=== PATIENT | female | born 1950 | race Caucasian/White ===

== ENCOUNTER 2016-12-27 13:08 | Emergency (ER) | payer MEDICARE, BC ==
[~2016-12-27] VITALS: Ht 152.4 cm; Wt 72.6 kg
[2016-12-27] MEDS ORDERED: HYDR-548 PO (13:29)
[2016-12-27] MEDS ORDERED: MELO-107 PO (13:29)
[2016-12-27] MEDS ORDERED: CITA10TA9 PO (13:29)
[2016-12-27] MEDS ORDERED: ASPI81TA31 PO (13:29)
[2016-12-27] MEDS ORDERED: LEVO100T10 PO (13:29)
[2016-12-27] MEDS ORDERED: ROPI1TAB2 PO (13:29)
[2016-12-27] MEDS ORDERED: LISI10TA5 PO (13:29)
[2016-12-27] MEDS ORDERED: TRAZ-144 PO (13:29)
[2016-12-27] MEDS ORDERED: MONT10TA22 PO (13:29)
[2016-12-27] MEDS ORDERED: GABA-532 PO (13:29)
[2016-12-27] MEDS ORDERED: MORPHINE SULFATE 2 MG/1 ML DISP.SYRIN IV ONE (14:00)
[2016-12-27] MEDS ORDERED: ONDANSETRON 4 MG/2 ML VIAL IV ONE (14:00)
[2016-12-27 14:15] LABS: BASOPHILS # (AUTO) 0.1 K/uL (0.0-8.0); BASOPHILS % (AUTO) 1.3 % (0.0-2.0); EOSINOPHILS # (AUTO) 0.1 K/uL (0.0-0.7); EOSINOPHILS % (AUTO) 0.6 % (0.0-7.0); HEMATOCRIT 36.3 % (37-47); HEMOGLOBIN 11.8 G/DL (12.0-16.0); LYMPHOCYTES # (AUTO) 1.5 K/UL (0.8-4.8); LYMPHOCYTES % (AUTO) 13.7 % (20.5-51.5); MEAN CORPUSCULAR HEMOGLOBIN 28.3 UUG (27.0-31.0); MEAN CORPUSCULAR HGB CONC 33 g/dL (32.0-37.0); MEAN CORPUSCULAR VOLUME 87.1 FL (81.0-99.0); MONOCYTES # (AUTO) 0.5 K/UL (0.1-1.30); MONOCYTES % (AUTO) 4.3 % (0.0-11.0); NEUTROPHILS # (AUTO) 8.6 K/UL (1.8-8.9); NEUTROPHILS % (AUTO) 80.1 % (38.5-71.5); PLATELET COUNT (AUTO) 464 K/UL (150-450); RED BLOOD CELL COUNT(AUTO) 4.17 MIL/UL (4.2-5.4); WHITE BLOOD COUNT (AUTO) 10.8 K/UL (4.0-11.2)
[2016-12-27] MEDS ORDERED: ONDANSETRON 4 MG/2 ML VIAL ONE (14:18)
[2016-12-27] MEDS ORDERED: MORPHINE SULFATE 4 MG/1 ML DISP.SYRIN ONE (14:18)
[2016-12-27 14:19] LABS: CREATININE 1.3 mg/dL (0.6-1.3); POTASSIUM 4.4 mmol/L (3.5-5.1)
[2016-12-27 14:31] LABS: BILIRUBIN,DIRECT 0.1 mg/dL (0.0-0.2); BILIRUBIN,TOTAL 0.3 mg/dL (0.2-1.0); TOTAL PROTEIN, SERUM 8.6 g/dL (6.4-8.2)
[2016-12-27 15:33] LABS: *BILIRUBIN,URIN NEGATIVE (NEGATIVE); *BLOOD, URINE NEGATIVE (NEGATIVE); *CLARITY,URINE SLIGHTLY CLOUDY (CLEAR); *COLOR,URINE YELLOW (YELLOW); *KETONES,URINE NEGATIVE (NEGATIVE); *PROTEIN,URINE 1+ (NEGATIVE); *UROBILINOGEN,URINE 0.2 E.U./dl (NORMAL); LEUKOCYTE ESTERASE ,URINE NEGATIVE (NEGATIVE); NITRITE, URINE NEGATIVE (NEGATIVE); UGLUCOSE NEGATIVE (NEGATIVE)
[2016-12-27 15:49] LABS: BACTERIA,URINE FEW /HPF (NONE SEEN); RBC,URINE 0-3 /HPF (0-3); SQUAMOUS EPITHELIAL CELL,UR MODERATE /HPF (NONE SEEN); WBC,URINE 0-3 /HPF (0-3)
--- NOTE | 2016-12-27 17:00 | NUR ---
Pt d/c home in stable condition with post verbal ACI by Dr Chi. Stressed follow up with pmd.
--- NOTE | 2016-12-27 17:00 | NUR ---
IV removed. Catheter intact and site benign. Pressure and 4x4 gauze applied to site. No bleeding noted.
== END 2016-12-27 17:20 | disposition home or self-care (01) ==
LOC: ER 13:08
DX: R10.31 Right lower quadrant pain (principal); I10 Essential (primary) hypertension; E03.9 Hypothyroidism, unspecified; Z79.82 Long term (current) use of aspirin
CPT/HCPCS: 36415; 83605; 83690; 85025; A4663; J2270; J2405

== ENCOUNTER 2017-01-17 20:23 | Inpatient (IN) | payer MEDICARE, BC ==
[~2017-01-17] VITALS: Ht 162.6 cm; Wt 68.0 kg
[~2017-01-17 20:23] MED LIST: ASPI81TA31 PO; CITA10TA9 PO; GABA-532 PO; HYDR-548 PO; LEVO100T10 PO; LISI10TA5 PO; MELO-107 PO; MONT10TA22 PO; ROPI1TAB2 PO; TRAZ-144 PO
--- NOTE | 2017-01-17 20:55 | NUR ---
Dr. Prieto at bedside for MSE
[2017-01-17] MEDS ORDERED: ONDANSETRON 4 MG/2 ML VIAL IV ONE (21:15)
[2017-01-17] MEDS ORDERED: MORPHINE SULFATE 2 MG/1 ML DISP.SYRIN IV ONE ×2 (21:15→21:45)
[2017-01-17 21:21] LABS: BASOPHILS # (AUTO) 0.3 K/uL (0.0-8.0); BASOPHILS % (AUTO) 1.3 % (0.0-2.0); EOSINOPHILS # (AUTO) 0.1 K/uL (0.0-0.7); EOSINOPHILS % (AUTO) 0.3 % (0.0-7.0); HEMATOCRIT 34.2 % (37-47); HEMOGLOBIN 11.2 G/DL (12.0-16.0); LYMPHOCYTES # (AUTO) 0.8 K/UL (0.8-4.8); MEAN CORPUSCULAR HEMOGLOBIN 28.4 UUG (27.0-31.0); MEAN CORPUSCULAR HGB CONC 33 g/dL (32.0-37.0); MEAN CORPUSCULAR VOLUME 86.7 FL (81.0-99.0); MONOCYTES # (AUTO) 0.1 K/UL (0.1-1.30); MONOCYTES % (AUTO) 0.5 % (0.0-11.0); NEUTROPHILS # (AUTO) 19.1 K/UL (1.8-8.9); NEUTROPHILS % (AUTO) 93.9 % (38.5-71.5); PLATELET COUNT (AUTO) 560 K/UL (150-450); RED BLOOD CELL COUNT(AUTO) 3.94 MIL/UL (4.2-5.4)
[2017-01-17] MEDS ORDERED: ONDANSETRON 4 MG/2 ML VIAL ONE (21:22)
[2017-01-17] MEDS ORDERED: MORPHINE SULFATE 4 MG/1 ML DISP.SYRIN ONE ×2 (21:22→21:51)
--- NOTE | 2017-01-17 21:30 | NUR ---
Pt wheeled to room via w/c. Per daughter pt c/o generalized weakness, decreased appetite and wound to R. inner thigh. Wound has redness, swelling, pain, drainage and odor. Wound is approx 7cm by 8cm. Pt changed into gown, placed on monitor. Pt NSR. Pt is shaking stating she is cold. No fever noted. Pt given blankets. Pt seen by MD. Labs collected and drawn. IV established, pt medicated for discomfort, will monitor for effects of medication. EKG obtained and given to . U/S at bedside.
--- NOTE | 2017-01-17 21:31 | NUR ---
In addition to previous noted, when asked Dr. Prieto if he wanted to start the sepsis fluid bolus. Dr. Prieto states not at this time.
[2017-01-17 21:33] LABS: CREATININE 1.3 mg/dL (0.6-1.3)
[2017-01-17 21:37] LABS: WHITE BLOOD COUNT (AUTO) 20.4 K/UL (4.0-11.2)
[2017-01-17 21:39] LABS: BILIRUBIN,DIRECT 0.2 mg/dL (0.0-0.2); BILIRUBIN,TOTAL 0.6 mg/dL (0.2-1.0); TOTAL PROTEIN, SERUM 8.9 g/dL (6.4-8.2)
[2017-01-17] MEDS ORDERED: PIPERACILLIN SODIUM/TAZOBACTAM 3.375 G in IV DEXTROSE 5% 50 ML IV ONE (21:45)
[2017-01-17] MEDS ORDERED: VANCOMYCIN 1G/D5W 200 ML PIGGYBACK IV ONE (21:45)
--- NOTE | 2017-01-17 21:50 | NUR ---
U/S completed, pt cont c/o severe pain and yelling out with the slightest touch or movement. MD Notified and pt medicated, will monitor for effects of medication.
[2017-01-17 21:53] LABS: BAND % (MANUAL) 2 % (0-10); LYMPHOCYTES % (MANUAL) 8 % (20-40); MONOCYTES % (MANUAL) 2 % (2-10); NEUTROPHILS % (MANUAL) 88 % (42-75)
--- NOTE | 2017-01-17 22:00 | NUR ---
Pt sts pain improving, resting in position of comfort. No yelling noted. ABT infusion started, will monitor for any adverse reactions. Daughter remains at bedside.
[2017-01-17] MEDS ORDERED: PIPERACILLIN/TAZOBACTAM/D5W 50 ML IV ONE (22:09)
[2017-01-17] MEDS ORDERED: IV NORMAL SALINE 1000 ML BAG IV ONE (22:15)
--- NOTE | 2017-01-17 22:20 | NUR ---
Dr. Prieto speaking with Dr. Obrien for admission.
--- NOTE | 2017-01-17 22:54 | NUR ---
Second ABT infusion started, will monitor for any adverse reactions. Wet to dry drsg applied to wound. Pt resting in position of comfort for self, no complaints at this time.
[2017-01-17] MEDS ORDERED: VANCOMYCIN IV 200 ML ONE (22:58)
--- NOTE | 2017-01-17 23:19 | NUR ---
Report given to CHARITY Finn. Preparing to transfer pt to the floor.
[2017-01-18] MEDS ORDERED: MORPHINE SULFATE 2 MG/1 ML DISP.SYRIN IV ONE
--- NOTE | 2017-01-18 00:02 | NUR ---
Pt sts pain getting worse. MD notified and pt medicated, will monitor for effects of medication
[2017-01-18] MEDS ORDERED: MORPHINE SULFATE 4 MG/1 ML DISP.SYRIN ONE (00:09)
--- NOTE | 2017-01-18 00:23 | NUR ---
Pt sts pain improved with previous medication. Fluid bolus completed, sepsis fluid reassessment done. ABT infusion completed, no adverse reactions noted.
--- NOTE | 2017-01-18 00:30 | NUR ---
PT RECEIVED FROM ED VIA [employer]. DAUGHTER AT BEDSIDE. A/OX4. ORIENTED TO ROOM. ABLE TO MAKE NEEDS KNOWN. V/S STABLE. NO ACUTE DISTRESS NOTED. PATIENT COMPLAINS OF RIGHT THIGH PAIN 01/31. WILL NOTIFY MD AND GET ORDERS FOR PAIN MEDICATION. DRESSING C/D/I. SAFETY MEASURES IMPLEMENTED. CALL LIGHT WITHIN REACH.
[2017-01-18] MEDS ORDERED: DOSING BY PHARMACY-MD TO SPECIFY MED/ROUTE XX PRN (02:15)
[2017-01-18] MEDS: HYDROMORPHONE 1 MG/1 ML DISP.SYRIN IV PRN ×5 (02:26→20:16)
[2017-01-18] MEDS ORDERED: HYDROMORPHONE 1 MG/1 ML DISP.SYRIN ONE ×2 (02:30→05:50)
[2017-01-18 05:43] VITALS: BP 125/44
[2017-01-18] MEDS: ACETAMINOPHEN 325 MG TABLET PO PRN ×2 (05:43→19:42)
[2017-01-18] MEDS ORDERED: ACETAMINOPHEN 325 MG TABLET ONE (05:50)
--- NOTE | 2017-01-18 06:23 | NUR ---
END OF SHIFT NOTES. PT SLEPT WELL THROUGHOUT SHIFT. PAIN MEDICATIONS ADMINISTERED ORDERED. PT HAS LOW GRADE FEVER. ADMINISTER ANTIPYRETIC PRESCRIBED. SAFETY MAINTAINED. CALL LIGHT WITHIN REACH. NEEDS ATTENDED. PT IN STABLE CONDITION.
[2017-01-18 06:45] LABS: BASOPHILS # (AUTO) 0.1 K/uL (0.0-8.0); BASOPHILS % (AUTO) 0.3 % (0.0-2.0); EOSINOPHILS # (AUTO) 0.1 K/uL (0.0-0.7); EOSINOPHILS % (AUTO) 0.3 % (0.0-7.0); HEMATOCRIT 29.6 % (37-47); HEMOGLOBIN 9.7 G/DL (12.0-16.0); LYMPHOCYTES # (AUTO) 1.6 K/UL (0.8-4.8); LYMPHOCYTES % (AUTO) 7.8 % (20.5-51.5); MEAN CORPUSCULAR HEMOGLOBIN 28.8 UUG (27.0-31.0); MEAN CORPUSCULAR HGB CONC 33 g/dL (32.0-37.0); MEAN CORPUSCULAR VOLUME 88.2 FL (81.0-99.0); MONOCYTES # (AUTO) 1.1 K/UL (0.1-1.30); MONOCYTES % (AUTO) 5.3 % (0.0-11.0); NEUTROPHILS # (AUTO) 17.1 K/UL (1.8-8.9); NEUTROPHILS % (AUTO) 86.3 % (38.5-71.5); PLATELET COUNT (AUTO) 511 K/UL (150-450); RED BLOOD CELL COUNT(AUTO) 3.36 MIL/UL (4.2-5.4)
[2017-01-18 06:58] LABS: CREATININE 1.1 mg/dL (0.6-1.3); MAGNESIUM 1.9 mg/dL (1.8-2.4); PHOSPHOROUS 3.7 mg/dL (2.5-4.9); POTASSIUM 3.9 mmol/L (3.5-5.1)
[2017-01-18 07:55] LABS: NEUTROPHILS % (MANUAL) 83 % (42-75)
[2017-01-18 07:56] LABS: BAND % (MANUAL) 3 % (0-10); LYMPHOCYTES % (MANUAL) 7 % (20-40); MONOCYTES % (MANUAL) 7 % (2-10)
[2017-01-18] MEDS: GABAPENTIN 100 MG CAPSULE PO SCH ×2 (08:02→18:19)
[2017-01-18] MEDS: MONTELUKAST SODIUM 10 MG TABLET PO SCH (08:02)
[2017-01-18] MEDS: CITALOPRAM 10 MG TABLET PO SCH (08:02)
[2017-01-18] MEDS: ASPIRIN 81 MG TAB.CHEW PO SCH (08:02)
[2017-01-18] MEDS: LISINOPRIL 10 MG TABLET PO SCH (08:03)
[2017-01-18] MEDS ORDERED: PIPERACILLIN/TAZOBACTAM/D5W 2.25 G in PREMIXED 1 EACH IV SCH (08:30)
[2017-01-18] MEDS: LEVOTHYROXINE SODIUM 100 MCG TABLET PO SCH (09:55)
[2017-01-18] MEDS ORDERED: MELOXICAM 7.5 MG TABLET PO SCH (10:00)
[2017-01-18] MEDS ORDERED: TRAZODONE 50 MG TABLET PO SCH (10:00)
[2017-01-18 11:06] VITALS: BP 98/49
--- NOTE | 2017-01-18 14:36 | NUR ---
Sctorch paged regarding low BP, MD order Bolus 500 cc of NS .
[2017-01-18] MEDS ORDERED: IV NORMAL SALINE 500 ML IV ONE (14:45)
--- NOTE | 2017-01-18 14:54 | NUR ---
Clinical pharmacy note-Vancomycin dosing per pharmacy Subjective: To start Vancomycin dosing on this 66 year old patient for cellulitis Objective: BUN 26 Scr 1.1 WBC 20 Temp 98.5 Ht 5'4" Wt 150 lbs Assessment/Plan: Patient had Vancomycin 1 gram x1 last night in ER at 2254. Will continue Vancomycin 1 gram IV every 21hrs(second dose tonight at 2000) and draw trough by 4th dose(not ordered yet ) for expected trough around 16. Will monitor renal function closely to adjust the dose if needed. Will follow daily.
[2017-01-18 15:06] VITALS: BP 106/52
[2017-01-18] MEDS: PIPERACILLIN/TAZOBACTAM/D5W 50 ML IV SCH ×2 (16:09→22:12)
[2017-01-18] MEDS: ropiniROLE 1 MG TABLET PO SCH (18:19)
--- NOTE | 2017-01-18 19:45 | NUR ---
RECEIVED REPORT VIA PATIENT. PATIENT IS AWAKE AND ALERT X4 IN BED WITH DAUGHTER AT BEDSIDE. PATIENT ASSISTED TO USE BEDPAN. PATIENT FEELS WARM TO TOUCH. TEMPERATURE TAKEN AND RECEIVED 100.5. ALL OTHER VSS. PATIENT GIVEN TYLENOL 650MG PO PRN FOR TEMP. C/O PAIN IN RIGHT GROIN. NO RESP. DISTRESS NOTED. ON RA SATING 96%. HEPLOCK INTACT AND NOTED TO RIGHT AC #20 GAUGE. BED ALARM ON. CALL LIGHT IN REACH. ALL NEEDS ATTENDED. WILL CONTINUE TO MONITOR AND ASSESS.
[2017-01-18 20:00] VITALS: BP 112/59
[2017-01-18] MEDS ORDERED: VANCOMYCIN IV 1 G in PREMIXED 0 EACH IV SCH (20:00)
[2017-01-18] MEDS: LACTOBACILLUS RHAMNOSUS GG 1 EACH CAPSULE PO SCH (20:10)
--- NOTE | 2017-01-18 20:15 | NUR ---
PATIENT C/O PAIN IN RIGHT GROIN. DRESSING NOTED TO AFFECTED AREA, C/D/I. PATIENT GIVEN DILAUDID 1MG IV PER REPAIRER WOOD FURNITURE. AFEBRILE AT THIS TIME. 98.7, ALL OTHER VSS. CALL LIGHT IN REACH. ALL NEEDS ATTENDED. WILL CONTINUE TO MONITOR AND ASSESS.
--- NOTE | 2017-01-18 22:00 | NUR ---
PATIENT ASLEEP IN BED. NO S/S OF PAIN OR DISCOMFORT. NO FACIAL GRIMACE NOTED. SLEEPING WELL, APPEARS COMFORTABLE. CALL LIGHT IN REACH. ALL NEEDS ATTENDED. WILL CONTINUE TO MONITOR.
[2017-01-19] MEDS: HYDROMORPHONE 1 MG/1 ML DISP.SYRIN IV PRN ×3 (01:10→12:38)
[2017-01-19] MEDS: PIPERACILLIN/TAZOBACTAM/D5W 50 ML IV SCH ×3 (03:48→15:17)
--- NOTE | 2017-01-19 05:30 | NUR ---
PATIENT AWAKE, C/O PAIN IN RIGHT GROIN. UNABLE TO GIVEN PAIN MEDICATION DUE TO LOW BP 89/46. ALL OTHER VSS. PATIENT GIVEN TYLENOL 650MG PO PRN FOR PAIN. DRESSING NOTED TO RIGHT GROIN, CHANGED, C/D/I. PATIENT SLEPT WELL THROUGHOUT THE NIGHT. CALL LIGHT IN REACH. ALL NEEDS ATTENDED. WILL CONTINUE TO MONITOR AND ASSESS.
[2017-01-19] MEDS: ACETAMINOPHEN 325 MG TABLET PO PRN (05:34)
[2017-01-19] MEDS: LEVOTHYROXINE SODIUM 100 MCG TABLET PO SCH (06:11)
[2017-01-19 06:26] VITALS: BP 89/44
[2017-01-19 07:07] LABS: BASOPHILS # (AUTO) 0.1 K/uL (0.0-8.0); BASOPHILS % (AUTO) 0.5 % (0.0-2.0); EOSINOPHILS # (AUTO) 0.2 K/uL (0.0-0.7); EOSINOPHILS % (AUTO) 0.9 % (0.0-7.0); HEMOGLOBIN 9.2 G/DL (12.0-16.0); LYMPHOCYTES # (AUTO) 1.7 K/UL (0.8-4.8); LYMPHOCYTES % (AUTO) 9.9 % (20.5-51.5); MEAN CORPUSCULAR HEMOGLOBIN 29.7 UUG (27.0-31.0); MEAN CORPUSCULAR HGB CONC 34 g/dL (32.0-37.0); MEAN CORPUSCULAR VOLUME 86.8 FL (81.0-99.0); NEUTROPHILS # (AUTO) 14.4 K/UL (1.8-8.9); NEUTROPHILS % (AUTO) 82.7 % (38.5-71.5); PLATELET COUNT (AUTO) 511 K/UL (150-450); RED BLOOD CELL COUNT(AUTO) 3.11 MIL/UL (4.2-5.4); WHITE BLOOD COUNT (AUTO) 17.4 K/UL (4.0-11.2)
[2017-01-19 07:26] LABS: BILIRUBIN,TOTAL 0.8 mg/dL (0.2-1.0); CREATININE 1.7 mg/dL (0.6-1.3); PHOSPHOROUS 4.1 mg/dL (2.5-4.9); POTASSIUM 3.2 mmol/L (3.5-5.1); TOTAL PROTEIN, SERUM 7.2 g/dL (6.4-8.2)
[2017-01-19] MEDS: LISINOPRIL 10 MG TABLET PO SCH (08:23)
[2017-01-19] MEDS: GABAPENTIN 100 MG CAPSULE PO SCH ×2 (08:23→17:04)
[2017-01-19] MEDS: MONTELUKAST SODIUM 10 MG TABLET PO SCH (08:23)
[2017-01-19] MEDS: CITALOPRAM 10 MG TABLET PO SCH (08:23)
[2017-01-19] MEDS: LACTOBACILLUS RHAMNOSUS GG 1 EACH CAPSULE PO SCH ×2 (08:23→20:39)
[2017-01-19] MEDS: ASPIRIN 81 MG TAB.CHEW PO SCH (08:24)
--- NOTE | 2017-01-19 08:46 | NUR ---
PT AWAKE IN BED, HAS PAIN 01/31, CHECKED BP 96/51, EXPLAINED TO PT VBP IS A LITTLE TOO LOW STILL FOR DILAUDID, PT VERBALIZED UNDERSTANDING. ADMINISTERED MORNING MEDICATIONS, WILL RE CHECK BP IN 30 MIN, CALL LIGHT IN REACH
[2017-01-19 11:01] VITALS: BP 94/46
--- NOTE | 2017-01-19 13:03 | NUR ---
URINE SENT TO LAB. PT MEDICATED WITH DILAUDID, BP 113/60 WILL MONITOR CLOSELY. PT URINATED IN BEDPAN AND WOUND DRESSING GOT WET, DRESSING IMMEDIATELY CHANGED. DAUGHTER AT BEDSIDE.
[2017-01-19 13:15] LABS: *BILIRUBIN,URIN NEGATIVE (NEGATIVE); *BLOOD, URINE 2+ (NEGATIVE); *CLARITY,URINE SLIGHTLY CLOUDY (CLEAR); *COLOR,URINE YELLOW (YELLOW); *KETONES,URINE NEGATIVE (NEGATIVE); *PROTEIN,URINE 2+ (NEGATIVE); LEUKOCYTE ESTERASE ,URINE NEGATIVE (NEGATIVE); NITRITE, URINE NEGATIVE (NEGATIVE); UGLUCOSE NEGATIVE (NEGATIVE)
[2017-01-19 13:28] LABS: BACTERIA,URINE FEW /HPF (NONE SEEN); RBC,URINE 0-3 /HPF (0-3); SQUAMOUS EPITHELIAL CELL,UR MODERATE /HPF (NONE SEEN)
[2017-01-19 15:05] VITALS: BP 94/64
--- NOTE | 2017-01-19 16:19 | NUR ---
Clinical pharmacy note-Vancomycin dosing per pharmacy Subjective: To continue Vancomycin dosing on this 66 year old patient for cellulitis Objective: BUN 29 Scr 1.7 WBC 17.4 Temp 98.6 Ht 5'4" Wt 150 lbs Assessment/Plan: Patient is on Vancomycin 1 gram IV every 21 hr but since scr is significantly elevated(1.7 vs 1.1), will hold 5pm dose and draw random(ordered at 1630). Will follow the level for further dosing. Addendum: 01/19/17 at 1727 by JADEN LARSEN VANCOMYCIN RANDOM AT 1630 WA 17.6. WILL GIVE VANCOMYCIN 1 GRAM X1 AT 1800. WILL FOLLOW THE RANDOM LEVEL FOR FURTHER DOSING. TO DECIDE TIME TO DRAW NEXT LEVEL UPON CHECKING AM LABS.
[2017-01-19] MEDS: POTASSIUM CHLORIDE 10 MEQ in IV 1/2NS 1000 ML 1,000 ML IV PRN (17:02)
[2017-01-19] MEDS: ropiniROLE 1 MG TABLET PO SCH (17:04)
[2017-01-19] MEDS ORDERED: VANCOMYCIN IV 1 G in PREMIXED 0 EACH IV ONE (18:00)
--- NOTE | 2017-01-19 18:21 | NUR ---
PT SLEEPING IN BED, AWAKENS TO NAME, NO ACUTE DISTRESS, BP 116/47. RIGHT THIGH WOUND DRESSING DRY AND INTACT, ALL SAFETY AND COMFORT MEASURES MAINTAINED THROUGHOUT SHIFT, CALL LIGHT IN REACH
[2017-01-19 20:02] VITALS: BP 104/53
--- NOTE | 2017-01-19 20:30 | NUR ---
NORCO 10-325 MG 1 TAB PO ADMIN FOR C/O RIGHT INNER GROIN PAIN 01/31, DRESSING C/D/I,PATIENT INSTRUCTED TO CALL FOR ASSISTANCE,BED ALARM ON.
[2017-01-19] MEDS: HYDROCODONE/APAP 10-325 MG TABLET PO PRN (20:39)
[2017-01-19] MEDS: PIPERACILLIN/TAZOBACTAM/D5W 2.25 G in PREMIXED 1 EACH IV SCH (21:39)
[2017-01-20] MEDS: PIPERACILLIN/TAZOBACTAM/D5W 2.25 G in PREMIXED 1 EACH IV SCH ×4 (03:25→22:53)
[2017-01-20] MEDS: HYDROMORPHONE 1 MG/1 ML DISP.SYRIN IV PRN ×2 (03:27→21:00)
--- NOTE | 2017-01-20 03:30 | NUR ---
DRESSING TO RIGHT INNER GROIN GOT WET,DRESSING CHANGED. DILAUDID 1 MG IV ADMIN FOR PAIN 8/10 SCALE,PATIENT SLEEP INTERMITTENTLY,CONTINUE CLOSELY MONITOR.
[2017-01-20 05:15] VITALS: BP 89/51
[2017-01-20] MEDS: LEVOTHYROXINE SODIUM 100 MCG TABLET PO SCH (05:40)
[2017-01-20 05:53] LABS: BASOPHILS % (AUTO) 0.1 % (0.0-2.0); EOSINOPHILS # (AUTO) 0.1 K/uL (0.0-0.7); HEMATOCRIT 25.3 % (37-47); HEMOGLOBIN 8.6 G/DL (12.0-16.0); LYMPHOCYTES # (AUTO) 1.3 K/UL (0.8-4.8); LYMPHOCYTES % (AUTO) 9.9 % (20.5-51.5); MEAN CORPUSCULAR HEMOGLOBIN 29.2 UUG (27.0-31.0); MEAN CORPUSCULAR HGB CONC 34 g/dL (32.0-37.0); MONOCYTES # (AUTO) 0.9 K/UL (0.1-1.30); MONOCYTES % (AUTO) 6.8 % (0.0-11.0); NEUTROPHILS # (AUTO) 11.1 K/UL (1.8-8.9); NEUTROPHILS % (AUTO) 82.2 % (38.5-71.5); PLATELET COUNT (AUTO) 494 K/UL (150-450); RED BLOOD CELL COUNT(AUTO) 2.94 MIL/UL (4.2-5.4); WHITE BLOOD COUNT (AUTO) 13.4 K/UL (4.0-11.2)
[2017-01-20 06:09] LABS: BILIRUBIN,TOTAL 0.7 mg/dL (0.2-1.0); CREATININE 1.3 mg/dL (0.6-1.3); MAGNESIUM 1.8 mg/dL (1.8-2.4); PHOSPHOROUS 3.3 mg/dL (2.5-4.9); POTASSIUM 2.9 mmol/L (3.5-5.1); TOTAL PROTEIN, SERUM 6.8 g/dL (6.4-8.2)
[2017-01-20] MEDS: LISINOPRIL 10 MG TABLET PO SCH (08:18)
[2017-01-20] MEDS: POTASSIUM CHLORIDE 10 MEQ in IV 1/2NS 1000 ML 1,000 ML IV PRN (08:19)
[2017-01-20] MEDS: MONTELUKAST SODIUM 10 MG TABLET PO SCH (08:20)
[2017-01-20] MEDS: HYDROCODONE/APAP 10-325 MG TABLET PO PRN ×2 (08:20→17:01)
[2017-01-20] MEDS: CITALOPRAM 10 MG TABLET PO SCH (08:20)
[2017-01-20] MEDS: LACTOBACILLUS RHAMNOSUS GG 1 EACH CAPSULE PO SCH ×2 (08:20→21:00)
[2017-01-20] MEDS: ASPIRIN 81 MG TAB.CHEW PO SCH (08:20)
[2017-01-20] MEDS: GABAPENTIN 100 MG CAPSULE PO SCH ×2 (08:20→17:00)
--- NOTE | 2017-01-20 10:25 | NUR ---
Clinical pharmacy note-Vancomycin dosing per pharmacy Subjective: To continue Vancomycin dosing on this 66 year old patient for cellulitis Objective: BUN 23 Scr 1.3 WBC 13.4 Temp 98.7 Ht 5'4" Wt 150 lbs Assessment/Plan: Due to unstable scr, will continue to dose by fall off level. Patient received vancomycin 1gm IVPB yesterday at 1800. Plan to draw vanco random level today at 1700. Will follow the level for further dosing. Will continue to monitor Addendum: 01/20/17 at 1837 by TIFFANIE LARSEN RANDOM VANCOMYCIN LEVEL 17.0 GIVE VANCOMYCIN 1GM IVPB LEO
[2017-01-20] MEDS ORDERED: POTASSIUM CHLORIDE 50 ML IV SCH (11:45)
[2017-01-20 11:46] VITALS: BP 102/48
--- NOTE | 2017-01-20 12:16 | NUR ---
ok to convert potassium chloride from iv to po per dr. lew. 10meq IV potassium Chloride receiving already, 20 meq Oral Potassium Chloride to order and cancel the rest of potassium IV.
[2017-01-20] MEDS: POTASSIUM CHLORIDE 10 MEQ in IV NS 1000 ML 1,000 ML IV PRN (12:28)
[2017-01-20] MEDS ORDERED: POTASSIUM CHLORIDE 20 MEQ TAB.PRT.SR PO ONE (13:00)
[2017-01-20 16:05] VITALS: BP 117/59
[2017-01-20] MEDS: ropiniROLE 1 MG TABLET PO SCH (17:00)
--- NOTE | 2017-01-20 19:00 | NUR ---
PT IS LAYING IN BED COMFORTABLY. NO S/S OF RESPIRATORY DISTRESS NOTED. ALL SAFETY NEEDS ARE MET. NO PAIN NOTED. IV INTACT/PATENT.
[2017-01-20 19:49] VITALS: BP 108/57
[2017-01-20] MEDS ORDERED: VANCOMYCIN IV 1 G in PREMIXED 0 EACH IV ONE (20:00)
--- NOTE | 2017-01-20 23:57 | NUR ---
PT ASLEEP AT THIS TIME ,AROUSABLE PAIN RELIEVED FROM DILAUDID SHOT, RIGHT GROIN WOUND WITH DRESSING INTACT AND DRY, WILL CHANGE IN AM PER PT REQUEST.NEW IV SITE PLACED ,RIGHT AC SLIGHTLY SWOLLEN FROM IV INFILTRATION . WILL CONTINUE TO MONITOR, VSS,AFEBRILE.
[2017-01-21] MEDS: PIPERACILLIN/TAZOBACTAM/D5W 2.25 G in PREMIXED 1 EACH IV SCH (03:00)
[2017-01-21] MEDS: HYDROCODONE/APAP 10-325 MG TABLET PO PRN ×2 (04:51→15:02)
[2017-01-21] MEDS: POTASSIUM CHLORIDE 10 MEQ in IV NS 1000 ML 1,000 ML IV PRN (04:57)
[2017-01-21 05:07] VITALS: BP 126/62
--- NOTE | 2017-01-21 05:12 | NUR ---
PATIENT AWAKE, SLEEP ON AND OFF, ON PAIN MANAGEMENT, NO SOB NO CHEST PAIN NOTED, KEPT CLEAN AND DRY, DRESSING ON R THIGH WAS CHANGED DUE TO SOILAGE, USES BEDPAN FOR BLADDER ELIMINATION. CONT TO MONITOR.
[2017-01-21] MEDS: LEVOTHYROXINE SODIUM 100 MCG TABLET PO SCH (06:06)
[2017-01-21 06:42] LABS: BILIRUBIN,TOTAL 0.7 mg/dL (0.2-1.0); MAGNESIUM 1.8 mg/dL (1.8-2.4); PHOSPHOROUS 2.1 mg/dL (2.5-4.9); POTASSIUM 3.2 mmol/L (3.5-5.1); TOTAL PROTEIN, SERUM 6.9 g/dL (6.4-8.2)
[2017-01-21 06:45] LABS: BASOPHILS # (AUTO) 0.1 K/uL (0.0-8.0); BASOPHILS % (AUTO) 0.8 % (0.0-2.0); EOSINOPHILS # (AUTO) 0.1 K/uL (0.0-0.7); EOSINOPHILS % (AUTO) 1.1 % (0.0-7.0); HEMATOCRIT 24.1 % (37-47); HEMOGLOBIN 8.2 G/DL (12.0-16.0); LYMPHOCYTES # (AUTO) 0.9 K/UL (0.8-4.8); LYMPHOCYTES % (AUTO) 7.6 % (20.5-51.5); MEAN CORPUSCULAR HEMOGLOBIN 28.8 UUG (27.0-31.0); MEAN CORPUSCULAR HGB CONC 34 g/dL (32.0-37.0); MEAN CORPUSCULAR VOLUME 84.8 FL (81.0-99.0); MONOCYTES # (AUTO) 0.8 K/UL (0.1-1.30); MONOCYTES % (AUTO) 7.2 % (0.0-11.0); NEUTROPHILS # (AUTO) 9.5 K/UL (1.8-8.9); NEUTROPHILS % (AUTO) 83.3 % (38.5-71.5); PLATELET COUNT (AUTO) 544 K/UL (150-450); RED BLOOD CELL COUNT(AUTO) 2.84 MIL/UL (4.2-5.4); WHITE BLOOD COUNT (AUTO) 11.4 K/UL (4.0-11.2)
[2017-01-21] MEDS: LACTOBACILLUS RHAMNOSUS GG 1 EACH CAPSULE PO SCH ×2 (08:31→21:16)
[2017-01-21] MEDS: GABAPENTIN 100 MG CAPSULE PO SCH ×2 (08:31→16:56)
[2017-01-21] MEDS: MONTELUKAST SODIUM 10 MG TABLET PO SCH (08:31)
[2017-01-21] MEDS: ASPIRIN 81 MG TAB.CHEW PO SCH (08:31)
[2017-01-21] MEDS: CITALOPRAM 10 MG TABLET PO SCH (08:31)
--- NOTE | 2017-01-21 09:53 | NUR ---
WOUND CARE CONSULT MEDIA ACCOUNT EXECUTIVE RECEIVED CONSULT, WOUND CARE WILL DEFER TO SURGICAL TEAM AT THIS TIME. DR CORTEZ GRANT HAS DONE CONSULT. WILL SEE PRN.
--- NOTE | 2017-01-21 10:26 | NUR ---
Clinical pharmacy note-Vancomycin dosing per pharmacy Subjective: To continue Vancomycin dosing on this 66 year old patient for cellulitis Objective: BUN 13 Scr 1.0 WBC 11.4 Temp 99.7 Ht 5'4" Wt 150 lbs Assessment/Plan: Patient received vancomycin 1gm IVPB yesterday at 2100. Plan to draw vanco random level today at 1900. Will follow the level for further dosing & since srcr has decreased will start dosing patient routinely if random level is within therapeutic range. Will continue to monitor Addendum: 01/21/17 at 2013 by TIFFANIE LARSEN RANDOM VANCOMYCIN LEVEL 15.3. GIVE VANCOMYCIN 1GM IVPB [id number]
[2017-01-21] MEDS: PIPERACILLIN/TAZOBACTAM/D5W 50 ML IV SCH ×3 (10:41→23:21)
--- NOTE | 2017-01-21 11:53 | NUR ---
PATIENT SEEN AND EXAMINED BY DR SCOTT WITH AWARE OF K AT 3.2 AND PHOS AT 2.1 WITH NEW ORDERS AND NOTED.
[2017-01-21 12:09] VITALS: BP 120/72
[2017-01-21] MEDS: POTASSIUM PHOSPHATE MM 5 MMOL in IV DEXTROSE 5% 100 ML IV SCH ×4 (13:04→21:15)
[2017-01-21] MEDS: ONDANSETRON 4 MG/2 ML VIAL IV PRN (13:47)
[2017-01-21 16:50] VITALS: BP 119/62
--- NOTE | 2017-01-21 17:00 | NUR ---
DRESSING CHANGED TO HER RIGHT GROIN AND SHE WAS SEEN AND EXAMINED BY SURGERY ELECTRONICS TECHNOLOGY DEPARTMENT CHAIR WITH NO NEW ORDERS AT THIS TIME.
[2017-01-21] MEDS: ropiniROLE 1 MG TABLET PO SCH ×2 (17:21→17:27)
--- NOTE | 2017-01-21 19:00 | NUR ---
Bedside reporting with CHARITY Neves. Received patient appears sleeping during initial rounds. No s/s of respiratory distress noted. IVF infusing well on right hand, no s/s of infiltration noted. Right groin dressing dry and intact. Safety measures and fall precaution maintained. Continue care as planned.
[2017-01-21 20:00] VITALS: BP 123/62
[2017-01-21] MEDS ORDERED: VANCOMYCIN IV 1 G in PREMIXED 0 EACH IV SCH (21:00)
[2017-01-21] MEDS: Z GUARD REMEDY PASTE 57 GM TUBE TOP SCH (21:16)
--- NOTE | 2017-01-21 22:05 | NUR ---
Good pericare/skin care rendered after incontinence. Z guard applied as needed. Pt tolerated procedure well. Repositioned for comfort.
[2017-01-22] MEDS: PIPERACILLIN/TAZOBACTAM/D5W 50 ML IV SCH ×4 (03:08→21:00)
[2017-01-22] MEDS: ONDANSETRON 4 MG/2 ML VIAL IV PRN (03:51)
--- NOTE | 2017-01-22 03:55 | NUR ---
Complaining of feeling ingrid=useated, Zofran given as needed. Will monitor.
[2017-01-22 04:00] VITALS: BP 117/57
--- NOTE | 2017-01-22 04:30 | NUR ---
Sound asleep this time.
[2017-01-22] MEDS: POTASSIUM CHLORIDE 10 MEQ in IV NS 1000 ML 1,000 ML IV PRN ×2 (05:35→19:36)
--- NOTE | 2017-01-22 06:00 | NUR ---
Incontinence care rendered. Slept at long interval. No complaint of pain presented. Wound care done as ordered. No s/s of adverse reaction noted from meds. All needs attended and met. No significant event reported all night. Continue current plan of care.
[2017-01-22] MEDS: LEVOTHYROXINE SODIUM 100 MCG TABLET PO SCH (06:19)
[2017-01-22] MEDS: LACTOBACILLUS RHAMNOSUS GG 1 EACH CAPSULE PO SCH ×2 (09:09→22:01)
[2017-01-22] MEDS: CITALOPRAM 10 MG TABLET PO SCH (09:09)
[2017-01-22] MEDS: ASPIRIN 81 MG TAB.CHEW PO SCH (09:09)
[2017-01-22] MEDS: GABAPENTIN 100 MG CAPSULE PO SCH ×2 (09:09→17:08)
[2017-01-22] MEDS: MONTELUKAST SODIUM 10 MG TABLET PO SCH (09:09)
[2017-01-22] MEDS: Z GUARD REMEDY PASTE 57 GM TUBE TOP SCH ×2 (09:10→22:01)
[2017-01-22] MEDS: HYDROCODONE/APAP 10-325 MG TABLET PO PRN (09:11)
--- NOTE | 2017-01-22 09:41 | NUR ---
PT IS LAYING IN BED COMFORTABLY. NO S.S OF RESPIRATORY DISTRESS NOTED. MO PAIN NOTED. ALL SAFETY NEEDS ARE MET. IV INTACT/PATENT. WILL CONTINUE TO MONITOR.
--- NOTE | 2017-01-22 13:56 | NUR ---
Clinical pharmacy note-Vancomycin dosing per pharmacy Subjective: To continue Vancomycin dosing on this 66 year old patient for cellulitis Objective: BUN 13(01/03) Scr 1.0 (01/21) WBC 11.4 (01/21) Temp 97.9 Ht 5'4" Wt 150 lbs Assessment/Plan: Continue Vancomycin 1gram IV every 24hrs for now. First dose was scheduled to given 01/21 at 2100 but actual administration was done today at 0103. Re-scheduled to give at 0100 daily. Will follow daily.
[2017-01-22 16:03] VITALS: BP 119/50
--- NOTE | 2017-01-22 16:13 | NUR ---
PT HAS DIARRHEA, ASKED DR SCOTT IN REGARDS OF ORDERS, PER DR SCOTT "WILL PUT IN". dR. SCOTT NEVER PUT THE ORDER. PAGED DR. SCOTT
--- NOTE | 2017-01-22 16:15 | NUR ---
PT WILL HAVE SURGERY AT 100 AM ON 01/23 PER NURSE AIRCRAFT MAINTENANCE ENGINEER. AWAITING ORDERS.
--- NOTE | 2017-01-22 16:42 | NUR ---
PAGED DR SCOTT SECOND TIME
--- NOTE | 2017-01-22 16:54 | NUR ---
PAGED DR. SCOTT THIRD TIME, AWAITING RESPONSE
[2017-01-22] MEDS ORDERED: DIPHENOXYLATE HCL/ATROP SULF TABLET PO PRN (17:00)
--- NOTE | 2017-01-22 17:01 | NUR ---
PER DR. SCOTT GIVE LOMOTIL Q6H 1 TAB PRN, SAMPLE FOR STOOL FOR CDIFF
[2017-01-22] MEDS: ropiniROLE 1 MG TABLET PO SCH (17:04)
--- NOTE | 2017-01-22 17:51 | NUR ---
PER PHARMACIST STOOL NEEDS TO BE SEND FIRST BEFORE GIVING LOMOTIL, WILL ADVISE THE NOC SHIFT IF STOOL WON'T BE READY BEFORE THE END OF THE SHIFT
--- NOTE | 2017-01-22 17:54 | NUR ---
WOUND CARE DONE
--- NOTE | 2017-01-22 19:00 | NUR ---
ADVISED NOC NURSE TO CALL RT FOR ALBUTEROL TREATMENT
--- NOTE | 2017-01-22 19:09 | NUR ---
pt advised that she "lost her voice due to her asthma". Advised Dr. Rosa "Albuterol Q6PRN per Dr. Stewart"
[2017-01-22] MEDS ORDERED: ALBUTEROL SULFATE 8 GM HFA.AER.AD IH PRN (19:15)
--- NOTE | 2017-01-22 19:31 | NUR ---
NO CHANGES NOTED. ALL SAFETY NEEDS ARE MET.
[2017-01-22 20:00] VITALS: BP 121/59
[2017-01-23] VITALS (9 sets, daily range): BP systolic 111–139; BP diastolic 55–78
[2017-01-23] MEDS: VANCOMYCIN IV 1 G in PREMIXED 0 EACH IV SCH (01:24)
[2017-01-23] MEDS: PIPERACILLIN/TAZOBACTAM/D5W 50 ML IV SCH ×4 (04:16→20:41)
--- NOTE | 2017-01-23 07:00 | NUR ---
PT IS SLEEPING IN BED COMFORTABLY. NO PAIN NOTED/REPORTED. ALL SAFETY NEEDS ARE MET. IV INTACT/PATENT INFUSING FLUIDS. WILL CONTINUE TO MONITOR.
[2017-01-23 07:16] LABS: EOSINOPHILS # (AUTO) 0.2 K/uL (0.0-0.7); HEMATOCRIT 24.6 % (37-47); HEMOGLOBIN 8.4 G/DL (12.0-16.0); LYMPHOCYTES # (AUTO) 1.5 K/UL (0.8-4.8); LYMPHOCYTES % (AUTO) 13.9 % (20.5-51.5); MEAN CORPUSCULAR HEMOGLOBIN 29.1 UUG (27.0-31.0); MEAN CORPUSCULAR HGB CONC 34 g/dL (32.0-37.0); MEAN CORPUSCULAR VOLUME 85.1 FL (81.0-99.0); MONOCYTES # (AUTO) 0.9 K/UL (0.1-1.30); MONOCYTES % (AUTO) 8.3 % (0.0-11.0); NEUTROPHILS # (AUTO) 8.5 K/UL (1.8-8.9); NEUTROPHILS % (AUTO) 75.8 % (38.5-71.5); PLATELET COUNT (AUTO) 609 K/UL (150-450); RED BLOOD CELL COUNT(AUTO) 2.89 MIL/UL (4.2-5.4); WHITE BLOOD COUNT (AUTO) 11.1 K/UL (4.0-11.2)
[2017-01-23] MEDS: LEVOTHYROXINE SODIUM 100 MCG TABLET PO SCH (07:31)
[2017-01-23 07:56] LABS: BILIRUBIN,TOTAL 0.5 mg/dL (0.2-1.0); CREATININE 0.9 mg/dL (0.6-1.3); MAGNESIUM 1.8 mg/dL (1.8-2.4); PHOSPHOROUS 2.2 mg/dL (2.5-4.9); POTASSIUM 3.2 mmol/L (3.5-5.1); TOTAL PROTEIN, SERUM 7.2 g/dL (6.4-8.2)
[2017-01-23] MEDS ORDERED: SEVOFLURANE 250 ML BOTTLE IH ONE (09:00)
[2017-01-23] MEDS ORDERED: POLYMYXIN B SULFATE 500,000 UNITS, BACITRACIN 50,000 UNITS, NORMAL SALINE 20 ML MC ONE ×6 (09:00→11:30)
[2017-01-23] MEDS ORDERED: LIDOCAINE HCL 1% 20 ML VIAL MC ONE (09:00)
[2017-01-23] MEDS ORDERED: PROPOFOL 200 MG/20 ML BOTTLE IV ONE (09:00)
[2017-01-23] MEDS ORDERED: IV LACTATED RINGERS SOLUTION 1,000 ML BAG IV ONE (09:00)
[2017-01-23] MEDS: CITALOPRAM 10 MG TABLET PO SCH (09:13)
[2017-01-23] MEDS: LACTOBACILLUS RHAMNOSUS GG 1 EACH CAPSULE PO SCH ×2 (09:13→20:40)
[2017-01-23] MEDS: ASPIRIN 81 MG TAB.CHEW PO SCH (09:13)
[2017-01-23] MEDS: GABAPENTIN 100 MG CAPSULE PO SCH ×2 (09:13→17:28)
[2017-01-23] MEDS: MONTELUKAST SODIUM 10 MG TABLET PO SCH (09:13)
[2017-01-23] MEDS: Z GUARD REMEDY PASTE 57 GM TUBE TOP SCH ×2 (09:16→20:41)
--- NOTE | 2017-01-23 09:30 | NUR ---
PT WENT TO OR FOR THE PROCEDURE. ADVISED THAT ANTIBIOTICS ARE STILL RUNNING. PT HAS BEEN NOTED TO HAVE HOARSE VOICE.
[2017-01-23] MEDS: ALBUTEROL SULFATE 2.5 MG/3 ML NEBU NEB PRN (10:21)
[2017-01-23] MEDS ORDERED: ALBUTEROL SULFATE 2.5 MG/3 ML NEBU ONE (10:33)
[2017-01-23] MEDS ORDERED: FENTANYL CITRATE 100 MCG/2 ML AMPUL ONE ×2 (11:08→12:27)
[2017-01-23] MEDS ORDERED: MIDAZOLAM HCL 2 MG/2 ML VIAL ONE (11:08)
[2017-01-23] MEDS ORDERED: LIDOCAINE HCL 1% 20 ML VIAL ONE (11:13)
[2017-01-23] MEDS ORDERED: BUPIVACAINE/EPI PF 0.25% 30 ML VIAL ONE (11:14)
[2017-01-23] MEDS ORDERED: BACITRACIN 50,000 UNITS VIAL ONE (11:38)
[2017-01-23] MEDS: SODIUM HYPOCHLORITE 0.125% 473 ML BOTTLE TP SCH (13:47)
--- NOTE | 2017-01-23 13:47 | NUR ---
dakin's solution along with dressing change will resume tomorrow
[2017-01-23] MEDS: POTASSIUM PHOSPHATE MM 7.5 MMOL in IV DEXTROSE 5% 100 ML IV SCH ×2 (14:21→14:36)
--- NOTE | 2017-01-23 15:21 | NUR ---
Clinical pharmacy note-Vancomycin dosing per pharmacy Subjective: To continue Vancomycin dosing on this 66 year old patient for cellulitis Objective: BUN 6 Scr 0.9 WBC 11.1 Temp 98.8 Ht 5'4" Wt 150 lbs Assessment/Plan: Continue Vancomycin 1gram IV every 24hrs, second dose was given today 01/23 @ 0124. Will order trough before 4th scheduled dose (not ordered yet). Will go back to dosing per level if renal function were to become unstable again. Will continue to monitor.
[2017-01-23] MEDS: HYDROMORPHONE 1 MG/1 ML DISP.SYRIN IV PRN (15:33)
[2017-01-23] MEDS ORDERED: FLUT1BLS4 IH (16:39)
[2017-01-23] MEDS: ropiniROLE 1 MG TABLET PO SCH (17:18)
[2017-01-23] MEDS: POTASSIUM CHLORIDE 10 MEQ in IV NS 1000 ML 1,000 ML IV PRN (18:20)
--- NOTE | 2017-01-23 18:44 | NUR ---
PT REFUSED TO TAKE THE PICTURE OF THE WOUND DURING THE DAY SHIFT.
--- NOTE | 2017-01-23 18:52 | NUR ---
NO CHANGES NOTED. PT IS SLEEPING IN BED COMFORTABLY. IV IS INFUSING/PATENT. NO PAIN NOTED. DRESSING WOUND IS CLEAN, INTACT. NO SOB NOTED. NO RESPIRATORY DISTRESS NOTED. ALL SAFETY NEEDS ARE MET.
--- NOTE | 2017-01-23 19:20 | NUR ---
PT IN BED, RESP IS EVEN AND UNLABORED. NO ACUTE DISTRESS. IV IS PATENT AND INTACT. CALL LIGHT WITH IN REACH. WILL CONT TO MONITOR.
[2017-01-24] MEDS: VANCOMYCIN IV 1 G in PREMIXED 0 EACH IV SCH (01:08)
--- NOTE | 2017-01-24 01:49 | NUR ---
RECEIVED STOOL C-DIFF TEST RESULT, IT IS NEGATIVE. D/C CONTACT ISOLATION PRECAUTIONS ON PT. PT IN BED, SLEEPING. RESP IS EVEN AND UNLABORED. NO SOB. CALL LIGHT WITHIN REACH WILL CONT TO MONITOR.
[2017-01-24] MEDS: PIPERACILLIN/TAZOBACTAM/D5W 50 ML IV SCH ×4 (03:46→20:25)
[2017-01-24 04:00] VITALS: BP 123/56
[2017-01-24] MEDS: LEVOTHYROXINE SODIUM 100 MCG TABLET PO SCH (06:04)
[2017-01-24] MEDS: HYDROMORPHONE 1 MG/1 ML DISP.SYRIN IV PRN ×3 (06:14→17:52)
--- NOTE | 2017-01-24 06:57 | NUR ---
PT IN BED, RESTING. RESP IS EVEN AND UNLABORED. NO SOB. NO ACUTE DISTRESS. IV IS PATENT AND INTACT C FLUIDS INFUSING WELL. CALL LIGHT WITHIN REACH.
[2017-01-24 07:18] LABS: BASOPHILS % (AUTO) 0.1 % (0.0-2.0); EOSINOPHILS # (AUTO) 0.2 K/uL (0.0-0.7); HEMATOCRIT 24.5 % (37-47); HEMOGLOBIN 8.4 G/DL (12.0-16.0); LYMPHOCYTES # (AUTO) 1.5 K/UL (0.8-4.8); LYMPHOCYTES % (AUTO) 12.8 % (20.5-51.5); MEAN CORPUSCULAR HEMOGLOBIN 29.1 UUG (27.0-31.0); MEAN CORPUSCULAR HGB CONC 34 g/dL (32.0-37.0); MEAN CORPUSCULAR VOLUME 84.9 FL (81.0-99.0); MONOCYTES # (AUTO) 1.1 K/UL (0.1-1.30); MONOCYTES % (AUTO) 9.2 % (0.0-11.0); NEUTROPHILS # (AUTO) 8.7 K/UL (1.8-8.9); NEUTROPHILS % (AUTO) 75.9 % (38.5-71.5); PLATELET COUNT (AUTO) 556 K/UL (150-450); RED BLOOD CELL COUNT(AUTO) 2.89 MIL/UL (4.2-5.4); WHITE BLOOD COUNT (AUTO) 11.5 K/UL (4.0-11.2)
--- NOTE | 2017-01-24 07:20 | NUR ---
RECEIVED REPORT FROM CRAB FISHERMAN, PATIENT IN BED, SLEEPING, NO EVIDENCE OF DISTRESS NOTED, SIDE RAILS UP X2, BED IN LOW POSITION.
[2017-01-24 07:40] LABS: BILIRUBIN,TOTAL 0.5 mg/dL (0.2-1.0); CREATININE 0.9 mg/dL (0.6-1.3); MAGNESIUM 1.8 mg/dL (1.8-2.4); PHOSPHOROUS 2.4 mg/dL (2.5-4.9); POTASSIUM 3.5 mmol/L (3.5-5.1)
[2017-01-24] MEDS ORDERED: IOHEXOL 300MG/ML 100 ML INFUS..BTL ONE (08:17)
--- NOTE | 2017-01-24 09:00 | NUR ---
PATIENT WENT TO RADIOLOGY FOR A STAT CT SCAN WITH MRI ORDERED BY PHYSICIAN, AFTER CONSENT WAS SIGNED.
[2017-01-24] MEDS: CITALOPRAM 10 MG TABLET PO SCH (09:22)
[2017-01-24] MEDS: LACTOBACILLUS RHAMNOSUS GG 1 EACH CAPSULE PO SCH ×2 (09:22→20:45)
[2017-01-24] MEDS: ASPIRIN 81 MG TAB.CHEW PO SCH (09:22)
[2017-01-24] MEDS: MONTELUKAST SODIUM 10 MG TABLET PO SCH (09:22)
[2017-01-24] MEDS: GABAPENTIN 100 MG CAPSULE PO SCH ×2 (09:22→17:51)
[2017-01-24] MEDS: SODIUM HYPOCHLORITE 0.125% 473 ML BOTTLE TP SCH (09:24)
[2017-01-24] MEDS: Z GUARD REMEDY PASTE 57 GM TUBE TOP SCH ×2 (09:25→20:26)
[2017-01-24] MEDS: FLUTICASONE/VILANTEROL 1 EACH BLST.W.DEV INH SCH (09:59)
[2017-01-24 11:00] VITALS: BP 94/52
--- NOTE | 2017-01-24 13:49 | NUR ---
Clinical pharmacy note-Vancomycin dosing per pharmacy Subjective: To continue Vancomycin dosing on this 66 year old patient for cellulitis Objective: BUN 4 Scr 0.9 WBC 11.5 Temp 99.4 Ht 5'4" Wt 150 lbs Assessment/Plan: As renal function remains stable, continue Vancomycin 1gram IV every 24hrs, third dose was given today 01/24 @ 0108. Will order trough before 4th scheduled dose (due tomorrow early am @0030). RN endorsed to hold dose if level >20. Will check level in am and adjust as needed. Will continue to monitor.
[2017-01-24] MEDS ORDERED: POTASSIUM PHOSPHATE MM 5 MMOL in IV DEXTROSE 5% 100 ML IV SCH (14:00)
[2017-01-24 15:00] VITALS: BP 110/49
--- NOTE | 2017-01-24 16:00 | NUR ---
PERFORMED WOUND CARE ON RIGHT THIGH OPEN WOUND PER ORDERED INSTRUCTIONS.
[2017-01-24] MEDS: POTASSIUM PHOSPHATE MM 5 MMOL in IV DEXTROSE 5% 100 ML IV SCH ×2 (17:11→18:00)
[2017-01-24] MEDS: ropiniROLE 1 MG TABLET PO SCH (18:00)
[2017-01-24] MEDS: POTASSIUM CHLORIDE 10 MEQ in IV NS 1000 ML 1,000 ML IV PRN (18:10)
--- NOTE | 2017-01-24 18:30 | NUR ---
CALLED DR SCOTT TO REPORT RASH ON RIGHT AXILLA. RECEIVED ORDERS FROM DR MARTÍNEZ FOR BENADRYL 25MG [id number]
--- NOTE | 2017-01-24 18:53 | NUR ---
PATIENT IS IN BED, NO EVIDENCE OF DISTRESS NOTED, BENADRYL ADMINISTERED.
[2017-01-24] MEDS: diphenhydrAMINE 50 MG/1 ML VIAL IV PRN (19:15)
--- NOTE | 2017-01-24 19:25 | NUR ---
PT IN BED, RESP IS EVEN AND UNLABORED. NO ACUTE DISTRESS. NOTED WITH RASH ON RIGHT AXILLA C REPORT TO DECREASING IN ITCHING. IV IS PATENT AND INTACT. CALL LIGHT WITH IN REACH. WILL CONT TO MONITOR.
[2017-01-24 20:44] VITALS: BP 103/57
[2017-01-25] MEDS: VANCOMYCIN IV 1 G in PREMIXED 0 EACH IV SCH ×2 (01:25→18:09)
[2017-01-25] MEDS: PIPERACILLIN/TAZOBACTAM/D5W 50 ML IV SCH ×4 (03:27→21:43)
[2017-01-25 04:00] VITALS: BP 107/44
[2017-01-25] MEDS: diphenhydrAMINE 50 MG/1 ML VIAL IV PRN ×3 (04:51→21:47)
[2017-01-25] MEDS: LEVOTHYROXINE SODIUM 100 MCG TABLET PO SCH (06:04)
--- NOTE | 2017-01-25 06:58 | NUR ---
PT IN BED, RESP IS EVEN AND UNLABORED. NO ACUTE DISTRESS. PT C/O ITCHING OF RIGHT AXILLA, BENADRYL PROVIDED PER ORDER. IV IS PATENT AND INTACT. DRESSING ON RIGHT INNER THIGH IS CLEAN DRY AND INTACT. CALL LIGHT WITH IN REACH. WILL CONT TO MONITOR.
--- NOTE | 2017-01-25 07:10 | NUR ---
RECEIVED REPORT FROM DICER MACHINE OPERATOR, PATIENT IN BED SLEEPING, NO EVIDENCE OF DISTRESS NOTED, BED IN LOW POSITION, BED ALARM SET, SIDE RAILS UP X2.
[2017-01-25] MEDS: FLUTICASONE/VILANTEROL 1 EACH BLST.W.DEV INH SCH (09:03)
[2017-01-25] MEDS: CITALOPRAM 10 MG TABLET PO SCH (09:03)
[2017-01-25] MEDS: ASPIRIN 81 MG TAB.CHEW PO SCH (09:04)
[2017-01-25] MEDS: GABAPENTIN 100 MG CAPSULE PO SCH ×2 (09:04→16:14)
[2017-01-25] MEDS: MONTELUKAST SODIUM 10 MG TABLET PO SCH (09:04)
[2017-01-25] MEDS: Z GUARD REMEDY PASTE 57 GM TUBE TOP SCH ×2 (09:04→21:47)
[2017-01-25] MEDS: LACTOBACILLUS RHAMNOSUS GG 1 EACH CAPSULE PO SCH ×2 (09:04→21:47)
[2017-01-25] MEDS: SODIUM HYPOCHLORITE 0.125% 473 ML BOTTLE TP SCH (09:04)
[2017-01-25 11:26] VITALS: BP 108/56
--- NOTE | 2017-01-25 13:00 | NUR ---
PATIENT CONTINUED TO HAVE REDNESS AND WELTS UNDER HER ARMPITS. REPORTED TO RHONDA KOHLI THAT SHE CONTINUES TO HAVE REDNESS AND ITCHING, MUSIC LEADER STATED TO USE PROVIDONE SOLUTION TO SOAK THE KERLIX AND ONLY IRRIGATE THE INSIDE OF THE WOUND WITH PREVIOUSLY PRESCRIBED SOLUTION.
[2017-01-25 15:01] VITALS: BP 117/57
--- NOTE | 2017-01-25 15:41 | NUR ---
Clinical pharmacy note-Vancomycin dosing per pharmacy Subjective: To continue Vancomycin dosing on this 66 year old patient for cellulitis Objective: BUN 4 (01/24) Scr 0.9 (8/) WBC 11.5 (01/24) Temp 98.6 Ht 5'4" Wt 150 lbs Trough: 10.3 (today at 0030) Assessment/Plan: Based on trough, readjusted Vancomycin 1gram IV every 24hrs to 1gm q18hrs, for new expected trough of 16.1. Rescheduled previous regimen so that second dose will be due tonight at 1900. Will order trough before 4th scheduled dose (not ordered yet). Will continue to monitor.
[2017-01-25] MEDS: HYDROMORPHONE 1 MG/1 ML DISP.SYRIN IV PRN (16:15)
--- NOTE | 2017-01-25 17:00 | NUR ---
PATIENT CONTINUED TO HAVE REDNESS AND ITCHING. SEUN SERVICE UNIT OPERATOR OIL WELL WAS ASKED TO VISIT PATIENT. BENADRYL GIVEN FOR REDNESS AND ITCHING, DILAUDED GIVEN TO RELIEVE PAIN PRIOR TO WOUND CARE. SERVICE UNIT OPERATOR OIL WELL CHANGED WOUND CARE ORDER TO IRRIGATE WITH NS, AND PROVIDONE SOLUTION ON KERLIX PACKING ONLY.
[2017-01-25] MEDS: ropiniROLE 1 MG TABLET PO SCH (17:54)
[2017-01-25] MEDS: POTASSIUM CHLORIDE 10 MEQ in IV NS 1000 ML 1,000 ML IV PRN (18:08)
--- NOTE | 2017-01-25 18:51 | NUR ---
PATIENT IS IN BED WATCHING TV, NO EVIDENCE OF DISTRESS NOTED, NO SOB, ITCHING HAS SUBSIDED. PATIENT CONTINUES TO HAVE A HOARSE VOICE.
[2017-01-25 19:00] VITALS: BP 126/88
--- NOTE | 2017-01-25 19:30 | NUR ---
nsg: pt received a/o x 4, in bed. denies pain, sob. however, c/o gen itching due to hives on all over her body. on benadryl ivp. lungs sound clear to auscultate. on cont ivf. dvt pumps in place. call light within reach. bed alarm on.
--- NOTE | 2017-01-26 | NUR ---
nsg: no change in condition. pt comfortable sleeping.
[2017-01-26 04:00] VITALS: BP 116/62
[2017-01-26] MEDS: HYDROMORPHONE 1 MG/1 ML DISP.SYRIN IV PRN ×4 (05:56→19:07)
--- NOTE | 2017-01-26 06:35 | NUR ---
nsg: wound care dressing changed this am as ordered.
[2017-01-26] MEDS: LEVOTHYROXINE SODIUM 100 MCG TABLET PO SCH (06:38)
--- NOTE | 2017-01-26 07:20 | NUR ---
RECEIVED REPORT FROM ENGINEER REMOTE CONTROL DIESEL, PATIENT IN BED AWAKE, BED IN LOW POSITION, SIDE RAILS UPX2, NO EVIDENCE OF DISTRESS NOTED.
[2017-01-26 08:51] LABS: BASOPHILS # (AUTO) 0.1 K/uL (0.0-8.0); BASOPHILS % (AUTO) 0.4 % (0.0-2.0); EOSINOPHILS # (AUTO) 0.8 K/uL (0.0-0.7); EOSINOPHILS % (AUTO) 4.3 % (0.0-7.0); HEMATOCRIT 29.3 % (37-47); HEMOGLOBIN 9.8 G/DL (12.0-16.0); LYMPHOCYTES # (AUTO) 1.5 K/UL (0.8-4.8); LYMPHOCYTES % (AUTO) 7.9 % (20.5-51.5); MEAN CORPUSCULAR HEMOGLOBIN 28.7 UUG (27.0-31.0); MEAN CORPUSCULAR HGB CONC 34 g/dL (32.0-37.0); MEAN CORPUSCULAR VOLUME 85.7 FL (81.0-99.0); MONOCYTES # (AUTO) 0.2 K/UL (0.1-1.30); MONOCYTES % (AUTO) 1.3 % (0.0-11.0); NEUTROPHILS % (AUTO) 86.1 % (38.5-71.5); PLATELET COUNT (AUTO) 593 K/UL (150-450); RED BLOOD CELL COUNT(AUTO) 3.41 MIL/UL (4.2-5.4); WHITE BLOOD COUNT (AUTO) 18.6 K/UL (4.0-11.2)
[2017-01-26 08:56] LABS: CREATININE 0.9 mg/dL (0.6-1.3); POTASSIUM 3.2 mmol/L (3.5-5.1)
[2017-01-26 09:08] LABS: BAND % (MANUAL) 3 % (0-10); EOSINOPHILS % (MANUAL) 4 % (0-8); LYMPHOCYTES % (MANUAL) 10 % (20-40); MONOCYTES % (MANUAL) 3 % (2-10); NEUTROPHILS % (MANUAL) 80 % (42-75)
[2017-01-26] MEDS: CITALOPRAM 10 MG TABLET PO SCH (09:18)
[2017-01-26] MEDS: GABAPENTIN 100 MG CAPSULE PO SCH ×2 (09:19→17:33)
[2017-01-26] MEDS: MONTELUKAST SODIUM 10 MG TABLET PO SCH (09:19)
[2017-01-26] MEDS: ASPIRIN 81 MG TAB.CHEW PO SCH (09:19)
[2017-01-26] MEDS: LACTOBACILLUS RHAMNOSUS GG 1 EACH CAPSULE PO SCH ×2 (09:19→21:20)
[2017-01-26] MEDS: FLUTICASONE/VILANTEROL 1 EACH BLST.W.DEV INH SCH (09:20)
[2017-01-26] MEDS: Z GUARD REMEDY PASTE 57 GM TUBE TOP SCH ×2 (09:20→21:20)
[2017-01-26] MEDS: PIPERACILLIN/TAZOBACTAM/D5W 50 ML IV SCH ×3 (09:34→20:45)
[2017-01-26] MEDS: CLINDAMYCIN PHOSPHATE IV 900 MG in IV DEXTROSE 5% 100 ML IV SCH ×3 (11:14→21:20)
[2017-01-26 11:15] VITALS: BP 118/66
[2017-01-26] MEDS: diphenhydrAMINE 50 MG/1 ML VIAL IV PRN ×2 (11:17→17:27)
[2017-01-26] MEDS: POTASSIUM CHLORIDE 50 ML IV SCH ×2 (11:30→13:33)
--- NOTE | 2017-01-26 11:30 | NUR ---
CALLED DR SCOTT TO REPORT WORSENING GENERALIZED RASH ON PATIENTS BODY. REPORTED THAT ID DOCTOR WILL BE HERE LATER TODAY AND WILL LOOK AT IT. DR ORDERED HYDROCORTISONE CREAM FOR RASH.
[2017-01-26] MEDS: HYDROCORTISONE 1% OINT 28.35 GM TUBE TOP SCH ×2 (12:15→17:28)
[2017-01-26] MEDS: POTASSIUM CHLORIDE 10 MEQ in IV NS 1000 ML 1,000 ML IV PRN (12:34)
[2017-01-26] MEDS: VANCOMYCIN IV 1 G in PREMIXED 0 EACH IV SCH (13:00)
[2017-01-26 15:11] VITALS: BP 110/70
--- NOTE | 2017-01-26 15:19 | NUR ---
Clinical pharmacy note-Vancomycin dosing per pharmacy Subjective: To continue Vancomycin dosing on this 66 year old patient for cellulitis Objective: BUN 5 Scr 0.9 WBC 18.6 Temp 98.2 Ht 5'4" Wt 150 lbs Assessment/Plan: Will continue Vancomycin 1gram IV every q18hrs, for new expected trough of 16.1. Will order trough before 4th scheduled dose (ordered for tomorrow at 0630). Will continue to monitor.
[2017-01-26] MEDS: BOOST PLUS 237 ML LIQUID (RICH CHOCOLATE) PO SCH (17:28)
[2017-01-26] MEDS: ropiniROLE 1 MG TABLET PO SCH (17:33)
--- NOTE | 2017-01-26 18:38 | NUR ---
PATIENT IS IN BED, CONTINUES TO HAVE ITCHING AND GENERALIZED REDNESS. DR NOTIFIED, STILL WAITING FOR INFECTIOUS DISEASE DOCTOR TO EVALUATE CONDITION. SURGEON NOTED THAT ALL DRESSING CHANGES SHOULD BE DONE WITH NORMAL SALINE ONLY.
[2017-01-26 20:22] VITALS: BP 97/52
[2017-01-26 22:00] VITALS: BP 97/52
--- NOTE | 2017-01-26 23:04 | NUR ---
PER ERMViky REQUEST, CONTACTED TYLER HARVEY, COIN TELLER STATES WILL HAVE PAGED...
--- NOTE | 2017-01-26 23:10 | NUR ---
RECEIVED CALL FROM MD Pb SCOTT, TRANSFERRED TO JOANNA BETHEA....
[2017-01-27] MEDS ORDERED: VANCOMYCIN FOR PO/GT/NG USE PO SCH
[2017-01-27] MEDS: PIPERACILLIN/TAZOBACTAM/D5W 50 ML IV SCH (02:31)
[2017-01-27 04:00] VITALS: BP 125/70
[2017-01-27] MEDS: CLINDAMYCIN PHOSPHATE IV 900 MG in IV DEXTROSE 5% 100 ML IV SCH ×3 (05:06→22:10)
[2017-01-27] MEDS: POTASSIUM CHLORIDE 10 MEQ in IV NS 1000 ML 1,000 ML IV PRN (05:06)
[2017-01-27 05:22] VITALS: BP 125/70
[2017-01-27] MEDS: LEVOTHYROXINE SODIUM 100 MCG TABLET PO SCH (06:06)
[2017-01-27] MEDS: VANCOMYCIN IV 1 G in PREMIXED 0 EACH IV SCH (06:07)
[2017-01-27 06:27] LABS: EOSINOPHILS # (AUTO) 0.9 K/uL (0.0-0.7); HEMATOCRIT 26.8 % (37-47); LYMPHOCYTES # (AUTO) 1.3 K/UL (0.8-4.8); LYMPHOCYTES % (AUTO) 8.3 % (20.5-51.5); MEAN CORPUSCULAR HGB CONC 34 g/dL (32.0-37.0); MEAN CORPUSCULAR VOLUME 86.4 FL (81.0-99.0); MONOCYTES # (AUTO) 0.5 K/UL (0.1-1.30); MONOCYTES % (AUTO) 3.1 % (0.0-11.0); NEUTROPHILS # (AUTO) 13.1 K/UL (1.8-8.9); NEUTROPHILS % (AUTO) 82.6 % (38.5-71.5); PLATELET COUNT (AUTO) 548 K/UL (150-450); RED BLOOD CELL COUNT(AUTO) 3.11 MIL/UL (4.2-5.4); WHITE BLOOD COUNT (AUTO) 15.8 K/UL (4.0-11.2)
[2017-01-27 06:58] LABS: BILIRUBIN,TOTAL 0.3 mg/dL (0.2-1.0); MAGNESIUM 1.5 mg/dL (1.8-2.4); PHOSPHOROUS 2.2 mg/dL (2.5-4.9); POTASSIUM 3.6 mmol/L (3.5-5.1); TOTAL PROTEIN, SERUM 6.4 g/dL (6.4-8.2)
--- NOTE | 2017-01-27 07:20 | NUR ---
RECEIVED REPORT FROM RICE FIELD WORKER NURSE, PATIENT IN BED SLEEPING, NO EVIDENCE OF DISTRESS NOTED, BED IN LOW POSITION, SIDE RAILS UP X2.
[2017-01-27] MEDS: BOOST PLUS 237 ML LIQUID (RICH CHOCOLATE) PO SCH ×3 (08:09→16:41)
[2017-01-27] MEDS: ASPIRIN 81 MG TAB.CHEW PO SCH (08:56)
[2017-01-27] MEDS: GABAPENTIN 100 MG CAPSULE PO SCH ×2 (08:56→17:03)
[2017-01-27] MEDS: LACTOBACILLUS RHAMNOSUS GG 1 EACH CAPSULE PO SCH ×2 (08:56→22:09)
[2017-01-27] MEDS: FLUTICASONE/VILANTEROL 1 EACH BLST.W.DEV INH SCH (08:56)
[2017-01-27] MEDS: MONTELUKAST SODIUM 10 MG TABLET PO SCH (08:56)
[2017-01-27] MEDS: CITALOPRAM 10 MG TABLET PO SCH (08:56)
[2017-01-27] MEDS: Z GUARD REMEDY PASTE 57 GM TUBE TOP SCH ×2 (08:57→22:10)
[2017-01-27] MEDS: HYDROCORTISONE 1% OINT 28.35 GM TUBE TOP SCH ×2 (08:57→16:41)
--- NOTE | 2017-01-27 09:00 | NUR ---
PERFORMED WOUND CARE ON RIGHT THIGH, NORMAL SALINE USED TO IRRIGATE, AND KERLIX SOAKED IN NS AND THEN PACKED WOUND. COVERED WITH ABD PAD.
[2017-01-27] MEDS: HYDROMORPHONE 1 MG/1 ML DISP.SYRIN IV PRN ×2 (09:05→22:39)
[2017-01-27 09:12] LABS: BAND % (MANUAL) 5 % (0-10); EOSINOPHILS % (MANUAL) 7 % (0-8); LYMPHOCYTES % (MANUAL) 14 % (20-40); METAMYELOCYTES % 1 % (0-1); MONOCYTES % (MANUAL) 4 % (2-10); NEUTROPHILS % (MANUAL) 69 % (42-75)
[2017-01-27] MEDS ORDERED: SODIUM PHOSPHATE MM 15 MM in IV DEXTROSE 5% 250 ML IV ONE (11:15)
[2017-01-27] MEDS: diphenhydrAMINE 50 MG/1 ML VIAL IV PRN (11:25)
[2017-01-27] MEDS ORDERED: MAGNESIUM SULFATE/D5W 100 ML IV SCH (11:30)
[2017-01-27 12:04] VITALS: BP 95/53
--- NOTE | 2017-01-27 15:36 | NUR ---
Clinical pharmacy note-Vancomycin dosing per pharmacy Subjective: To continue Vancomycin dosing on this 66 year old patient for cellulitis Objective: BUN 6 Scr 1 WBC 15.8 Temp 98.4 Vanco trough level: 19.4 (level was scheduled for 0630, drawn close to 0600& RN documented given at 0600- too close time bledsoe to ensure appropriate level (pre-vanco admin time)- ordered random level-see below) Vanco random level: 28 (8 hrs post 6am dose) Ht 5'4" Wt 150 lbs Assessment/Plan: Will change chaney from Vancomycin 1gram IV every q18hrs, to vancomycin 1gm IVPB q20hrs for predicted vanco trough level of 15 mcg/ml at steady state. Second dose is due on 01/28 at 0200. Will order trough before 4th scheduled dose (not yet ordered). Will continue to monitor.
[2017-01-27] MEDS: ropiniROLE 1 MG TABLET PO SCH (16:42)
[2017-01-27 16:44] VITALS: BP 120/65
[2017-01-27 20:09] VITALS: BP 115/55
[2017-01-27] MEDS ORDERED: FAMOTIDINE 20 MG TABLET ONE (21:59)
--- NOTE | 2017-01-27 22:00 | NUR ---
PERFORMED WOUND TREATMENT ON RIGHT UPPER THIGH ORDERED. MEDICATED PATIENT WITH DILAUDID PRIOR TO WOUND DRESSING CHANGE. CLEANSED WOUND WITH NS, SOAKED AND SQUEEZED KERLIX WITH BETADINE SOLUTION, PACKED WOUND, COVERED WITH DRY DRESSING. WOUND NO BLEEDING/DISCHARGE/FOUL ODOR NOTED. PATIENT TOLERATED PROCEDURE WELL. WILL CONTINUE TO MONITOR.
[2017-01-27] MEDS: FAMOTIDINE 20 MG TABLET PO SCH (22:09)
[2017-01-28] MEDS ORDERED: VANCOMYCIN IV 1 G in PREMIXED 0 EACH IV SCH ×2 (02:00→03:00)
[2017-01-28] MEDS: diphenhydrAMINE 50 MG/1 ML VIAL IV PRN ×3 (03:15→18:31)
[2017-01-28 04:55] VITALS: BP 101/49
[2017-01-28] MEDS: CLINDAMYCIN PHOSPHATE IV 900 MG in IV DEXTROSE 5% 100 ML IV SCH (05:02)
[2017-01-28] MEDS: LEVOTHYROXINE SODIUM 100 MCG TABLET PO SCH (06:00)
[2017-01-28 06:01] LABS: BILIRUBIN,TOTAL 0.3 mg/dL (0.2-1.0); CREATININE 1.1 mg/dL (0.6-1.3); MAGNESIUM 1.7 mg/dL (1.8-2.4); PHOSPHOROUS 2.9 mg/dL (2.5-4.9); POTASSIUM 2.9 mmol/L (3.5-5.1); TOTAL PROTEIN, SERUM 5.8 g/dL (6.4-8.2)
--- NOTE | 2017-01-28 06:07 | NUR ---
PT SLEPT WELL, IN NO ACUTE DISTRESS. PT KEPT CLEAN/DRY, REPOSITIONED FOR COMFORT. CALL LIGHT WITHIN REACH, BED ALARM ON. WILL CONTINUE TO MONITOR
[2017-01-28 06:08] LABS: EOSINOPHILS # (AUTO) 0.9 K/uL (0.0-0.7); EOSINOPHILS % (AUTO) 6.9 % (0.0-7.0); HEMATOCRIT 26.4 % (37-47); HEMOGLOBIN 8.9 G/DL (12.0-16.0); LYMPHOCYTES # (AUTO) 1.3 K/UL (0.8-4.8); LYMPHOCYTES % (AUTO) 10.4 % (20.5-51.5); MEAN CORPUSCULAR HGB CONC 34 g/dL (32.0-37.0); MEAN CORPUSCULAR VOLUME 85.7 FL (81.0-99.0); MONOCYTES # (AUTO) 0.5 K/UL (0.1-1.30); MONOCYTES % (AUTO) 4.2 % (0.0-11.0); NEUTROPHILS # (AUTO) 9.9 K/UL (1.8-8.9); NEUTROPHILS % (AUTO) 78.5 % (38.5-71.5); PLATELET COUNT (AUTO) 522 K/UL (150-450); RED BLOOD CELL COUNT(AUTO) 3.07 MIL/UL (4.2-5.4); WHITE BLOOD COUNT (AUTO) 12.6 K/UL (4.0-11.2)
--- NOTE | 2017-01-28 06:30 | NUR ---
CALLED AND LEFT MESSAGE TO THE ANSWERING SERVICE FOR DR. SCOTT REGARDING PATIENT'S POTASSIUM LEVEL OF 2.9 WHICH WAS RESULTED TODAY AT 0519. WAITING FOR CALL BACK FROM DR. SCOTT. PATIENT IS ALERT, IN NO ACUTE DISTRESS, NO C/O OF CHEST PAIN, NO SOB. WILL CONTINUE TO MONITOR.
--- NOTE | 2017-01-28 07:00 | NUR ---
NO NEW ORDERS RECEIVED, WAITING FOR CALL BACK FROM DR. SCOTT REGARDING PATIENT'S POTASSIUM LEVEL OF 2.9. PT IS IN NO ACUTE DISTRESS. WILL ENDORSE TO THE DAY SHIFT RN.
--- NOTE | 2017-01-28 07:30 | NUR ---
DR. SORENSON PRESENT, NOTIFIED REGARDING PATIENT'S POTASSIUM LEVEL 2.9. ACKNOWLEDGED INFO. ENDORSED TO THE DAY SHIFT RN.
[2017-01-28] MEDS: BOOST PLUS 237 ML LIQUID (RICH CHOCOLATE) PO SCH ×3 (08:00→17:13)
[2017-01-28] MEDS: Z GUARD REMEDY PASTE 57 GM TUBE TOP SCH ×2 (09:00→20:51)
[2017-01-28] MEDS: HYDROCORTISONE 1% OINT 28.35 GM TUBE TOP SCH ×2 (09:00→17:13)
[2017-01-28] MEDS: ASPIRIN 81 MG TAB.CHEW PO SCH (10:08)
[2017-01-28] MEDS: MONTELUKAST SODIUM 10 MG TABLET PO SCH (10:08)
[2017-01-28] MEDS: CITALOPRAM 10 MG TABLET PO SCH (10:08)
[2017-01-28] MEDS: FAMOTIDINE 20 MG TABLET PO SCH ×2 (10:08→20:50)
[2017-01-28] MEDS: GABAPENTIN 100 MG CAPSULE PO SCH ×2 (10:08→17:53)
[2017-01-28] MEDS: FLUTICASONE/VILANTEROL 1 EACH BLST.W.DEV INH SCH (10:08)
[2017-01-28] MEDS: LACTOBACILLUS RHAMNOSUS GG 1 EACH CAPSULE PO SCH ×2 (10:08→20:49)
[2017-01-28 12:21] VITALS: BP 95/49
[2017-01-28] MEDS ORDERED: POTASSIUM CHLORIDE 50 ML IV SCH ×2 (14:45)
[2017-01-28] MEDS: MAGNESIUM SULFATE/D5W 100 ML IV SCH ×2 (15:08→16:49)
[2017-01-28] MEDS: POTASSIUM CHLORIDE 10 MEQ CAPSULE.SA PO SCH ×2 (15:08→17:53)
[2017-01-28 15:16] VITALS: BP 109/53
[2017-01-28] MEDS: ropiniROLE 1 MG TABLET PO SCH (17:53)
[2017-01-28] MEDS: HYDROMORPHONE 1 MG/1 ML DISP.SYRIN IV PRN (18:04)
--- NOTE | 2017-01-28 19:30 | NUR ---
PT RECEIVED IN BED, AWAKE. FAMILY AT BEDSIDE. A/OX4. ABLE TO MAKE NEEDS KNOWN. V/S STABLE. NO ACUTE DISTRESS NOTED. PT DOES NOT COMPLAIN OF PAIN AT THIS TIME. PT COMPLAINS OF SEVERE ITCHING, WILL ADMINISTER BENADRYL ORDERED. DRESSING C/D/I. LEGS ELEVATED. SAFETY MEASURES IMPLEMENTED. CALL LIGHT WITHIN REACH.
[2017-01-28 20:19] VITALS: BP 107/53
[2017-01-28] MEDS ORDERED: LINEZOLID 600 MG TABLET PO SCH (21:00)
[2017-01-28] MEDS ORDERED: IV NORMAL SALINE 250 ML BAG IV SCH (21:00)
[2017-01-28] MEDS ORDERED: ACETAMINOPHEN 325 MG TABLET PO SCH (21:00)
[2017-01-28] MEDS ORDERED: diphenhydrAMINE 25 MG CAP PO SCH (21:00)
[2017-01-29] MEDS: diphenhydrAMINE 50 MG/1 ML VIAL IV PRN ×3 (03:12→17:10)
[2017-01-29] MEDS: HYDROMORPHONE 1 MG/1 ML DISP.SYRIN IV PRN (03:13)
[2017-01-29 05:10] VITALS: BP 111/59
--- NOTE | 2017-01-29 06:11 | NUR ---
END OF SHIFT NOTES. PT SLEPT WELL THROUGHOUT SHIFT. PT IN STABLE CONDITION. NO ACUTE DISTRESS NOTED. ADMINISTERED PAIN MEDICATION ORDERED. PT CONTINUES TO HAVE ITCHING AND RASH THROUGHOUT BODY. ADMINISTERED BENADRYL ORDERED. WOUND DRESSING CHANGED, REMAINS C/D/I. SAFETY MAINTAINED. CALL LIGHT WITHIN REACH .
[2017-01-29] MEDS: LEVOTHYROXINE SODIUM 100 MCG TABLET PO SCH (06:20)
[2017-01-29 07:28] LABS: CREATININE 1.2 mg/dL (0.6-1.3); MAGNESIUM 2.2 mg/dL (1.8-2.4); POTASSIUM 3.7 mmol/L (3.5-5.1)
--- NOTE | 2017-01-29 07:30 | NUR ---
Pt awake and alert. No signs of pain. C/o itching. Rashes still present upon body without increased redness.
[2017-01-29] MEDS: FAMOTIDINE 20 MG TABLET PO SCH ×2 (08:31→21:03)
[2017-01-29] MEDS: MONTELUKAST SODIUM 10 MG TABLET PO SCH (08:31)
[2017-01-29] MEDS: CITALOPRAM 10 MG TABLET PO SCH (08:31)
[2017-01-29] MEDS: GABAPENTIN 100 MG CAPSULE PO SCH ×2 (08:31→17:09)
[2017-01-29] MEDS: LACTOBACILLUS RHAMNOSUS GG 1 EACH CAPSULE PO SCH ×2 (08:31→21:03)
[2017-01-29] MEDS: ASPIRIN 81 MG TAB.CHEW PO SCH (08:31)
[2017-01-29] MEDS: BOOST PLUS 237 ML LIQUID (RICH CHOCOLATE) PO SCH ×3 (08:33→17:11)
[2017-01-29] MEDS: FLUTICASONE/VILANTEROL 1 EACH BLST.W.DEV INH SCH (08:35)
[2017-01-29] MEDS: HYDROCORTISONE 1% OINT 28.35 GM TUBE TOP SCH ×2 (08:36→17:10)
[2017-01-29] MEDS: Z GUARD REMEDY PASTE 57 GM TUBE TOP SCH ×2 (08:36→21:05)
[2017-01-29] MEDS: ALBUTEROL SULFATE 2.5 MG/3 ML NEBU NEB PRN (10:33)
--- NOTE | 2017-01-29 11:00 | NUR ---
Seen by ADMISSIONS RECRUITER for ID. Awaiting cultures before restarting antibiotics.
[2017-01-29 11:27] VITALS: BP 120/60
--- NOTE | 2017-01-29 14:13 | NUR ---
Pt resting in bed. no s/s of distress with current 3L/min Oxygen. Continue observation as far as allergy reaction. Benadryl PRN given with temporary relief.
[2017-01-29 16:00] VITALS: BP 133/65
[2017-01-29] MEDS: ropiniROLE 1 MG TABLET PO SCH (17:08)
[2017-01-29] MEDS: HYDROCODONE/APAP 10-325 MG TABLET PO PRN (17:09)
--- NOTE | 2017-01-29 17:30 | NUR ---
Dressing changed to right inner thigh. Pt pre-medicated prior to. Noted wound very tender and painful to touch with redness around the area and moderate amount of puss drainage. Packed with moist dressing.
--- NOTE | 2017-01-29 19:30 | NUR ---
PT RECEIVED IN BED, AWAKE. V/S STABLE. PT IN NO ACUTE DISTRESS. ON 3L NC. PT STATES NO SOB. HOB ELEVATED. PT DOES NOT COMPLAIN OF PAIN AT THIS TIME. WOUND AND DRESSING C/D/I. LEGS ELEVATED ON PILLOWS. SAFETY MEASURES IMPLEMENTED. CALL LIGHT WITHIN REACH.
[2017-01-29 20:25] VITALS: BP 105/52
[2017-01-29] MEDS ORDERED: LEVOFLOXACIN 500 MG TABLET PO ONE (21:00)
[2017-01-29] MEDS ORDERED: LEVOFLOXACIN 500 MG TABLET PO SCH (21:00)
[2017-01-30] MEDS: diphenhydrAMINE 50 MG/1 ML VIAL IV PRN ×2 (00:22→11:45)
[2017-01-30 04:00] VITALS: BP 120/55
[2017-01-30] MEDS: HYDROMORPHONE 1 MG/1 ML DISP.SYRIN IV PRN (04:07)
[2017-01-30] MEDS: LEVOTHYROXINE SODIUM 100 MCG TABLET PO SCH (06:13)
[2017-01-30 06:40] LABS: BASOPHILS % (AUTO) 0.3 % (0.0-2.0); EOSINOPHILS # (AUTO) 1.2 K/uL (0.0-0.7); EOSINOPHILS % (AUTO) 11.1 % (0.0-7.0); HEMATOCRIT 27.6 % (37-47); HEMOGLOBIN 9.3 G/DL (12.0-16.0); LYMPHOCYTES # (AUTO) 1.1 K/UL (0.8-4.8); LYMPHOCYTES % (AUTO) 10.3 % (20.5-51.5); MEAN CORPUSCULAR HGB CONC 34 g/dL (32.0-37.0); MEAN CORPUSCULAR VOLUME 86.7 FL (81.0-99.0); MONOCYTES # (AUTO) 0.1 K/UL (0.1-1.30); MONOCYTES % (AUTO) 1.3 % (0.0-11.0); NEUTROPHILS # (AUTO) 8.4 K/UL (1.8-8.9); PLATELET COUNT (AUTO) 521 K/UL (150-450); RED BLOOD CELL COUNT(AUTO) 3.19 MIL/UL (4.2-5.4); WHITE BLOOD COUNT (AUTO) 10.8 K/UL (4.0-11.2)
--- NOTE | 2017-01-30 06:47 | NUR ---
WOUND TREATED ORDERED. PT PREMEDICATED.
--- NOTE | 2017-01-30 06:57 | NUR ---
END OF SHIFT NOTES. PT IN STABLE CONDITION. IN NO ACUTE DISTRESS. NEEDS ATTENDED. PAIN MEDICATIONS ADMINISTERED ORDERED. PT WOUND TX DONE. DRESSING C/D/I. PT CONTINUES TO HAVE GENERALIZED REDNESS AND RASH. BENADRYL ADMINISTERED PRESCRIBED. SAFETY MAINTAINED.
[2017-01-30 07:24] LABS: BAND % (MANUAL) 13 % (0-10); EOSINOPHILS % (MANUAL) 10 % (0-8); LYMPHOCYTES % (MANUAL) 15 % (20-40); MONOCYTES % (MANUAL) 4 % (2-10); MYELOCYTES % 1 % (0-0); NEUTROPHILS % (MANUAL) 57 % (42-75)
[2017-01-30] MEDS: BOOST PLUS 237 ML LIQUID (RICH CHOCOLATE) PO SCH ×3 (09:17→17:16)
[2017-01-30] MEDS: LACTOBACILLUS RHAMNOSUS GG 1 EACH CAPSULE PO SCH ×2 (09:18→21:03)
[2017-01-30] MEDS: GABAPENTIN 100 MG CAPSULE PO SCH ×2 (09:18→16:49)
[2017-01-30] MEDS: FAMOTIDINE 20 MG TABLET PO SCH ×2 (09:18→21:03)
[2017-01-30] MEDS: ASPIRIN 81 MG TAB.CHEW PO SCH (09:18)
[2017-01-30] MEDS: MONTELUKAST SODIUM 10 MG TABLET PO SCH (09:18)
[2017-01-30] MEDS: HYDROCORTISONE 1% OINT 28.35 GM TUBE TOP SCH ×2 (09:19→16:49)
[2017-01-30] MEDS: Z GUARD REMEDY PASTE 57 GM TUBE TOP SCH ×2 (09:19→21:04)
[2017-01-30] MEDS: FLUTICASONE/VILANTEROL 1 EACH BLST.W.DEV INH SCH (09:40)
[2017-01-30] MEDS: HYDROCODONE/APAP 10-325 MG TABLET PO PRN ×2 (10:32→21:04)
--- NOTE | 2017-01-30 11:31 | NUR ---
DRESSING CAME OFF WHILE AMBULATING WITH PT. NORCO GIVEN FOR PAIN. CLEANSED WITH NS, PACKED WITH NS KERLIX AND COVERED WITH ABD PAD PER ORDERS. PT RESTING COMFORTABLY IN BED
[2017-01-30 12:00] VITALS: BP 109/59
[2017-01-30] MEDS: CITALOPRAM 10 MG TABLET PO SCH (12:34)
--- NOTE | 2017-01-30 12:34 | NUR ---
CELEXA GIVEN LATE DUE TO ORDER OF EKG
[2017-01-30 16:00] VITALS: BP 108/57
[2017-01-30] MEDS: ropiniROLE 1 MG TABLET PO SCH (17:16)
--- NOTE | 2017-01-30 17:51 | NUR ---
PT RESTING IN BED, IN NO ACUTE DISTRESS. FAMILY AT BEDSIDE. IV INTACT AND PATENT. DRESSING TO RIGHT GROIN CHANGED THIS AM, KEPT DRY AND INTACT. BENADRYL WAS GIVEN ONE TIME FOR ITCHINESS. RASH IS IMPROVING. PT SATING 100% ON 3LNC, TITRATE DOWN TO 2LNC. ALL SAFETY AND COMFORT MEASURES MAINTAINED THROUGHOUT SHIFT, CALL LIGHT IN REACH
[2017-01-30 19:00] VITALS: BP 126/58
--- NOTE | 2017-01-30 19:00 | NUR ---
RECEIVED PATIENT IN BED ALERT ORIENTED, NO SOB NO CHEST PAIN, NO COMPLAIN OF PAIN AT THIS TIME, DRESSING INTACT ON RIGHT THIGH WOUND. CONT TO MONITOR.
[2017-01-30] MEDS: LEVOFLOXACIN 250 MG TABLET PO SCH (21:03)
--- NOTE | 2017-01-31 01:43 | NUR ---
Receive pt on bed, alert and awake. No acute distress noted. Breathing even and unlabored with normal respirations. On O2 2L via nasal cannula. All due meds given as ordered and well tolerated. Complained of right thigh pain, medicated with [place]. Verbalization of relief was noted. Vital signs stable. Kept clean, dry and comfortable. Call light within reach. All needs attended. will continue to monitor.
[2017-01-31] MEDS: diphenhydrAMINE 50 MG/1 ML VIAL IV PRN (03:14)
[2017-01-31] MEDS: HYDROMORPHONE 1 MG/1 ML DISP.SYRIN IV PRN ×2 (03:14→10:10)
[2017-01-31 04:00] VITALS: BP 93/50
--- NOTE | 2017-01-31 04:58 | NUR ---
Patient awake at this time. Assisted to bedside commode. Medicated with dilaudid 1mg IV push prior wound dressing change. Wound dressing change done as ordered. Morning care provided. Kept pt comfortable.
[2017-01-31 06:25] LABS: EOSINOPHILS # (AUTO) 1.1 K/uL (0.0-0.7); EOSINOPHILS % (AUTO) 10.2 % (0.0-7.0); HEMATOCRIT 25.5 % (37-47); HEMOGLOBIN 8.6 G/DL (12.0-16.0); LYMPHOCYTES # (AUTO) 0.9 K/UL (0.8-4.8); LYMPHOCYTES % (AUTO) 8.5 % (20.5-51.5); MEAN CORPUSCULAR HEMOGLOBIN 28.9 UUG (27.0-31.0); MEAN CORPUSCULAR HGB CONC 34 g/dL (32.0-37.0); MEAN CORPUSCULAR VOLUME 85.6 FL (81.0-99.0); MONOCYTES # (AUTO) 0.9 K/UL (0.1-1.30); MONOCYTES % (AUTO) 8.1 % (0.0-11.0); NEUTROPHILS % (AUTO) 73.2 % (38.5-71.5); PLATELET COUNT (AUTO) 461 K/UL (150-450); RED BLOOD CELL COUNT(AUTO) 2.98 MIL/UL (4.2-5.4); WHITE BLOOD COUNT (AUTO) 10.9 K/UL (4.0-11.2)
[2017-01-31] MEDS: LEVOTHYROXINE SODIUM 100 MCG TABLET PO SCH (06:27)
--- NOTE | 2017-01-31 06:32 | NUR ---
Pt. resting well. No acute distress noted. No c/o pain at this time. Vital signs stable. Kept clean, dry and comfortable. All needs attended. Will continue to monitor.
[2017-01-31 06:36] LABS: MONOCYTES % (MANUAL) 6 % (2-10)
[2017-01-31 06:38] LABS: BILIRUBIN,TOTAL 0.4 mg/dL (0.2-1.0); CREATININE 1.1 mg/dL (0.6-1.3); MAGNESIUM 1.7 mg/dL (1.8-2.4); POTASSIUM 3.2 mmol/L (3.5-5.1); TOTAL PROTEIN, SERUM 5.7 g/dL (6.4-8.2)
[2017-01-31 06:39] LABS: EOSINOPHILS % (MANUAL) 9 % (0-8); LYMPHOCYTES % (MANUAL) 11 % (20-40); NEUTROPHILS % (MANUAL) 74 % (42-75)
--- NOTE | 2017-01-31 07:08 | NUR ---
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 [employer] DISCONTINUED.
[2017-01-31] MEDS: BOOST PLUS 237 ML LIQUID (RICH CHOCOLATE) PO SCH ×3 (08:00→17:00)
--- NOTE | 2017-01-31 08:00 | NUR ---
Awake, alert, oriented x 4, on moderate high back rest. O2 at 2L/NC, not in distress, comfortable.
[2017-01-31] MEDS: FLUTICASONE/VILANTEROL 1 EACH BLST.W.DEV INH SCH (09:14)
[2017-01-31] MEDS: ASPIRIN 81 MG TAB.CHEW PO SCH (09:15)
[2017-01-31] MEDS: FAMOTIDINE 20 MG TABLET PO SCH ×2 (09:15→20:35)
[2017-01-31] MEDS: CITALOPRAM 10 MG TABLET PO SCH (09:15)
[2017-01-31] MEDS: MONTELUKAST SODIUM 10 MG TABLET PO SCH (09:15)
[2017-01-31] MEDS: LACTOBACILLUS RHAMNOSUS GG 1 EACH CAPSULE PO SCH ×2 (09:15→20:34)
[2017-01-31] MEDS: GABAPENTIN 100 MG CAPSULE PO SCH ×2 (09:15→17:13)
[2017-01-31] MEDS: Z GUARD REMEDY PASTE 57 GM TUBE TOP SCH ×2 (09:16→20:58)
[2017-01-31] MEDS: HYDROCORTISONE 1% OINT 28.35 GM TUBE TOP SCH ×2 (09:16→17:15)
--- NOTE | 2017-01-31 10:00 | NUR ---
Wound Care done to right thigh. Repositioned comfortably.
[2017-01-31 10:56] LABS: ABG BASE EXCESS -4.9 mmol/L; ABG HCO3 18.7 mmol/L; ABG PH 7.427 (7.350-7.450); ABG PO2 129.1 mmHg (75.0-100.0); ABG SITE LEFT RADIAL; ABG TOTAL HEMOGLOBIN 8.9 G/dL (12.0-16.0); COHb 1.1 % (0.5-1.5); MetHb 0.3 % (0.0-1.5); O2Hb 97.7 % (94.0-97.0); VENT MODE Nasal Cannula
--- NOTE | 2017-01-31 11:00 | NUR ---
ABG done, placed on RA after. Ambulated with PT with O2, tolerated.
[2017-01-31 11:02] VITALS: BP 101/50
[2017-01-31] MEDS ORDERED: POTASSIUM CHLORIDE 20 MEQ TAB.PRT.SR PO ONE (13:15)
--- NOTE | 2017-01-31 14:00 | NUR ---
Resting between care
[2017-01-31] MEDS: MAGNESIUM SULFATE/D5W 100 ML IV SCH ×2 (14:14→15:36)
[2017-01-31 15:05] VITALS: BP 114/58
[2017-01-31] MEDS: ropiniROLE 1 MG TABLET PO SCH (17:13)
--- NOTE | 2017-01-31 17:38 | NUR ---
Eating dinner fairly.
--- NOTE | 2017-01-31 19:00 | NUR ---
RECEIVED PATIENT IN BED, NO SOB NO CHEST PAIN NOTED, KEPT CLEAN DRY AND COMFORTABLE, DRESSING INTACT ON R THIGH, OXYGEN SAT WNL CONT TO MONITOR.
[2017-01-31 20:00] VITALS: BP 127/58
[2017-01-31] MEDS: LEVOFLOXACIN 250 MG TABLET PO SCH (20:35)
[2017-02-01 05:23] VITALS: BP 104/47
[2017-02-01] MEDS: LEVOTHYROXINE SODIUM 100 MCG TABLET PO SCH (06:28)
--- NOTE | 2017-02-01 06:32 | NUR ---
PATIENT SLEPT MOST OF THE NIGHT NO SOB NO CHEST PAIN NOTED, PATIENT COMPLAIN OF SOB ON EXCERATION, GIVEN OXYGEN 2 LITERS NC FOR ASSIST, NO COMPLAIN OF PAIN, R THIGH DRESSING INTACT, ASSISTED WITH TOILETING. CONT TO MONITOR.
[2017-02-01 06:36] LABS: BASOPHILS % (AUTO) 0.1 % (0.0-2.0); EOSINOPHILS # (AUTO) 1.2 K/uL (0.0-0.7); EOSINOPHILS % (AUTO) 12.4 % (0.0-7.0); HEMATOCRIT 25.2 % (37-47); HEMOGLOBIN 8.7 G/DL (12.0-16.0); LYMPHOCYTES # (AUTO) 1.2 K/UL (0.8-4.8); MEAN CORPUSCULAR HEMOGLOBIN 29.8 UUG (27.0-31.0); MEAN CORPUSCULAR HGB CONC 35 g/dL (32.0-37.0); MEAN CORPUSCULAR VOLUME 86.2 FL (81.0-99.0); MONOCYTES # (AUTO) 0.5 K/UL (0.1-1.30); MONOCYTES % (AUTO) 5.4 % (0.0-11.0); NEUTROPHILS # (AUTO) 6.5 K/UL (1.8-8.9); NEUTROPHILS % (AUTO) 69.1 % (38.5-71.5); PLATELET COUNT (AUTO) 462 K/UL (150-450); RED BLOOD CELL COUNT(AUTO) 2.93 MIL/UL (4.2-5.4); WHITE BLOOD COUNT (AUTO) 9.4 K/UL (4.0-11.2)
[2017-02-01 06:46] LABS: BILIRUBIN,TOTAL 0.2 mg/dL (0.2-1.0); CREATININE 1.1 mg/dL (0.6-1.3); MAGNESIUM 1.9 mg/dL (1.8-2.4); POTASSIUM 3.4 mmol/L (3.5-5.1); TOTAL PROTEIN, SERUM 5.7 g/dL (6.4-8.2)
[2017-02-01 07:13] LABS: BAND % (MANUAL) 12 % (0-10); EOSINOPHILS % (MANUAL) 17 % (0-8); LYMPHOCYTES % (MANUAL) 11 % (20-40); METAMYELOCYTES % 2 % (0-1); MONOCYTES % (MANUAL) 2 % (2-10); MYELOCYTES % 2 % (0-0); NEUTROPHILS % (MANUAL) 54 % (42-75)
--- NOTE | 2017-02-01 08:00 | NUR ---
SEEN BY DR SORENSON WITH ORDERS, FOR DISCHARGE TO SNF
[2017-02-01] MEDS: CITALOPRAM 10 MG TABLET PO SCH (08:09)
[2017-02-01] MEDS: LACTOBACILLUS RHAMNOSUS GG 1 EACH CAPSULE PO SCH ×2 (08:09→20:13)
[2017-02-01] MEDS: MONTELUKAST SODIUM 10 MG TABLET PO SCH (08:09)
[2017-02-01] MEDS: FAMOTIDINE 20 MG TABLET PO SCH ×2 (08:09→20:13)
[2017-02-01] MEDS: ASPIRIN 81 MG TAB.CHEW PO SCH (08:09)
[2017-02-01] MEDS: GABAPENTIN 100 MG CAPSULE PO SCH ×2 (08:09→16:54)
[2017-02-01] MEDS ORDERED: HYDR28.34 TOP (08:10)
[2017-02-01] MEDS ORDERED: ACET325T53 PO (08:10)
[2017-02-01] MEDS: BOOST PLUS 237 ML LIQUID (RICH CHOCOLATE) PO SCH ×3 (08:10→16:54)
[2017-02-01] MEDS ORDERED: ALBU2.5V7 NEB (08:10)
[2017-02-01] MEDS: FLUTICASONE/VILANTEROL 1 EACH BLST.W.DEV INH SCH (08:10)
[2017-02-01] MEDS ORDERED: FAMO20TA8 PO (08:10)
[2017-02-01] MEDS: Z GUARD REMEDY PASTE 57 GM TUBE TOP SCH ×2 (08:11→20:14)
[2017-02-01] MEDS ORDERED: LEVO250T2 PO (08:11)
[2017-02-01] MEDS: HYDROCORTISONE 1% OINT 28.35 GM TUBE TOP SCH ×2 (08:11→16:55)
[2017-02-01 11:15] VITALS: BP 129/62
[2017-02-01] MEDS ORDERED: POTASSIUM CHLORIDE 20 MEQ TAB.PRT.SR PO ONE (14:15)
[2017-02-01 15:03] VITALS: BP 126/70
--- NOTE | 2017-02-01 16:14 | NUR ---
Discharge Plan: Once medically cleared patient will be discharged to [facility] [[id number] [place] [address] room 21B]. Spoke with the family [Dandy [phone]] and patient at the bedside who are aware and agreeable with the discharge plans. Pt will be transported via ambulance.
[2017-02-01] MEDS: ropiniROLE 1 MG TABLET PO SCH (16:54)
[2017-02-01] MEDS: LEVOFLOXACIN 250 MG TABLET PO SCH (20:13)
[2017-02-01] MEDS: ACYCLOVIR 400 MG TABLET PO SCH (21:08)
[2017-02-01 21:30] VITALS: BP 120/54
--- NOTE | 2017-02-01 22:45 | NUR ---
PERFORMED WOUND CARE TO THE RIGHT THIGH ORDERED, CHANGED SOILED DRESSING. NO S/S OF BLEEDING. PT TOLERATED PROCEDURE WELL, PT REMAINS AFEBRILE. WILL CONTINUE TO MONITOR.
[2017-02-02] MEDS: ACYCLOVIR 400 MG TABLET PO SCH ×2 (05:23→13:10)
[2017-02-02] MEDS: LEVOTHYROXINE SODIUM 100 MCG TABLET PO SCH (06:05)
--- NOTE | 2017-02-02 06:29 | NUR ---
PT SLEPT INTERMITTENTLY, IN NO ACUTE DISTRESS. ASSISTED WITH TOILETING NEEDS, KEPT CLEAN/DRY. SAFETY MEASURES IN PLACE, CALL LIGHT WITHIN REACH, BED ALARM ON. WILL CONTINUE TO MONITOR.
[2017-02-02 06:53] LABS: CREATININE 1.1 mg/dL (0.6-1.3); POTASSIUM 3.6 mmol/L (3.5-5.1)
--- NOTE | 2017-02-02 08:00 | NUR ---
AWAKE ALERT COOPERATE WELL EAT BREAKFAST WITH GOOD APPETITE NO SOB DSG AT RT THIGH WOUND D/I STATE PAIN MED HELP RELIEF PAIN RESTING WELL WITH BED ALARM ON AND CALL FRIEDMAN IN REACH
[2017-02-02] MEDS: GABAPENTIN 100 MG CAPSULE PO SCH (08:59)
[2017-02-02] MEDS: MONTELUKAST SODIUM 10 MG TABLET PO SCH (08:59)
[2017-02-02] MEDS: LACTOBACILLUS RHAMNOSUS GG 1 EACH CAPSULE PO SCH (08:59)
[2017-02-02] MEDS: ASPIRIN 81 MG TAB.CHEW PO SCH (08:59)
[2017-02-02] MEDS: FAMOTIDINE 20 MG TABLET PO SCH (08:59)
[2017-02-02] MEDS: CITALOPRAM 10 MG TABLET PO SCH (08:59)
[2017-02-02] MEDS: Z GUARD REMEDY PASTE 57 GM TUBE TOP SCH (09:00)
[2017-02-02] MEDS: HYDROCORTISONE 1% OINT 28.35 GM TUBE TOP SCH (09:00)
[2017-02-02] MEDS: BOOST PLUS 237 ML LIQUID (RICH CHOCOLATE) PO SCH ×2 (09:01→12:00)
[2017-02-02] MEDS: FLUTICASONE/VILANTEROL 1 EACH BLST.W.DEV INH SCH (09:20)
[2017-02-02] MEDS: HYDROMORPHONE 1 MG/1 ML DISP.SYRIN IV PRN ×2 (09:21→14:54)
--- NOTE | 2017-02-02 10:00 | NUR ---
DR SORENSON SEE PATIENT AND LAB RESULT AND ORDER OK TO D/C TO SNF TODAY WITH ORDER
[2017-02-02 11:06] VITALS: BP 113/72
--- NOTE | 2017-02-02 14:00 | NUR ---
D/C INSTRUCTION REGARDING F/U WITH OWN PMD AND CONTINUE HOME MEDICIONE ORDER WILL CONTINUE AT SNF ORDER,VERBALIZES UNDERSTAND AND SIGNS D/C SHEET FAMILY WAS INFORM OF D/C TO [facility] TODAY AND REPORT GIVEN TO NURSE SUSAN VIA TEL HL WAS DISCONTINUE PRIOR DISCHARGE TODAY
[2017-02-02 15:21] VITALS: BP 114/58
--- NOTE | 2017-02-02 15:45 | NUR ---
D/C TO SNF [facility] VIA AMBULANCE CONDITION STABLE NO SOB OR PAIN ACCOMPANIES WITH DAUGHTER CAILIN
== END 2017-02-02 15:45 | DRG 853 ==
LOC: ER 20:31 → MED 23:50
PROVIDERS: ADMIT Internal Medicine; ATTEND Internal Medicine
PROC: 0W9H3ZZ Drainage of Retroperitoneum, Percutaneous Approach (ICD-10-PCS; 2017-01-23)
PROC: 0KBQ0ZZ Excision of Right Upper Leg Muscle, Open Approach (ICD-10-PCS; principal; 2017-01-23 10:56)
DX: A41.9 Sepsis, unspecified organism (principal); K68.19 Other retroperitoneal abscess; N17.0 Acute kidney failure with tubular necrosis; E43 Unspecified severe protein-calorie malnutrition; J90 Pleural effusion, not elsewhere classified; I96 Gangrene, not elsewhere classified; D68.9 Coagulation defect, unspecified; E87.1 Hypo-osmolality and hyponatremia; M86.8X8 Other osteomyelitis, other site; L03.115 Cellulitis of right lower limb; E03.9 Hypothyroidism, unspecified; G62.9 Polyneuropathy, unspecified; J98.6 Disorders of diaphragm; F41.9 Anxiety disorder, unspecified; G40.909 Epilepsy, unspecified, not intractable, without status epilepticus; Z79.899 Other long term (current) drug therapy; L27.1 Localized skin eruption due to drugs and medicaments taken internally; T36.0X5A Adverse effect of penicillins, initial encounter; Y92.230 Patient room in hospital as the place of occurrence of the external cause; Z68.25 Body mass index [BMI] 25.0-25.9, adult; B95.1 Streptococcus, group B, as the cause of diseases classified elsewhere; G58.8 Other specified mononeuropathies; K57.90 Diverticulosis of intestine, part unspecified, without perforation or abscess without bleeding; K44.9 Diaphragmatic hernia without obstruction or gangrene; I11.9 Hypertensive heart disease without heart failure; K76.0 Fatty (change of) liver, not elsewhere classified; I70.8 Atherosclerosis of other arteries; J45.909 Unspecified asthma, uncomplicated; G25.81 Restless legs syndrome; E87.6 Hypokalemia; E86.9 Volume depletion, unspecified; E83.39 Other disorders of phosphorus metabolism; F32.9 Major depressive disorder, single episode, unspecified; E83.51 Hypocalcemia; D75.89 Other specified diseases of blood and blood-forming organs; D64.9 Anemia, unspecified; Z90.710 Acquired absence of both cervix and uterus; Z87.891 Personal history of nicotine dependence; Z85.41 Personal history of malignant neoplasm of cervix uteri; Z83.3 Family history of diabetes mellitus; Z82.3 Family history of stroke; Z82.49 Family history of ischemic heart disease and other diseases of the circulatory system; M66.9 Spontaneous rupture of unspecified tendon
CPT/HCPCS: 36415; 36600; 70030-TC; 71010; 71250; 83605; 83735; 84100; 85025; 85730; 87040; 87070; 87075; 87077; 87086; 93005; 93880; 94664; 97110; 97116; 97161; 97530; A4217; A4649; A4663; J1170; J1200; J2250; J2270; J2405; J2543; J3010; J3370; J3475; J3480; J3490; J7030; J7040; J7060; J7120; Q9967